=== PATIENT | female | born 1965 | race African-American/Black ===

== ENCOUNTER 2017-01-08 09:05 | Emergency (ER) | payer MEDICAID, OTHER ==
[~2017-01-08] VITALS: Ht 162.6 cm; Wt 129.3 kg
[~2017-01-08 09:05] MED LIST: AFRIN30 ML NASAL; AMOXICILLIN500 MG ORAL; ASPIR-LOW81 MG PO; COZAAR50 MG PO; CYCLOBENZAPRINE10 MG ORAL; HYDROCHLOROTHIA25 MG PO; IBUPROFEN600 MG ORAL; METOPROLOL TART50 MG PO; PRILOSEC20 MG PO; RANITIDINE HCL150 MG ORAL; SUCRALFATE1 GM PO; TRAMADOL HCL50 MG ORAL; TRAMADOL HCL50 MG PO; VERAPAMIL HCL80 MG PO
[2017-01-08 09:19] VITALS: BP 156/63
[2017-01-08] MEDS ORDERED: METFORMIN HCL500 M1 ORAL (09:24)
[2017-01-08] MEDS ORDERED: NORCO 5-325 TA1 EACH ORAL (10:52)
[2017-01-08] MEDS ORDERED: IBUPROFEN600 MG ORAL (10:52)
[2017-01-08 11:00] VITALS: BP 149/70
[2017-01-08 11:05] VITALS: BP 149/70
--- NOTE | 2017-01-08 12:31 | Diagnostic Imaging Report ---
Indication: PAIN Technique: 3 views of the right knee Comparison: None Findings:There are degenerative proliferative changes. Joint spaces are preserved. No acute fractures. No dislocations. The definite suprapatellar effusion. Impression:Degenerative changes. No acute bony trauma This agrees with the preliminary interpretation provided by the emergency room physician
--- NOTE | 2017-01-08 12:43 | Diagnostic Imaging Report ---
APPROVED REPORT CPT Code: 78774 Present Symptoms Lower Extremity Pain: Right RIGHT LEG: Venous imaging reveals a patent deep venous system. There is no evidence of thrombus within the femoral, popliteal or tibial segments. The greater saphenous vein is also within normal limits. Doppler indicates normal spontaneous flow within these segments. Incidental finding: Cystic, fluid-filled structure was noted around anterior right knee area, measuring (4.0 cm x 1.5 cm).
--- NOTE | 2017-01-08 12:58 | Emergency Room Report ---
History of Present Illness General Chief Complaint: Pain Source: Patient Present Illness HPI Patient presents emergency department today complaining of right knee pain. Patient states that she develop acute onset right knee pain progressively worse over the last couple weeks. 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 Gerardo complains of swollen right lower extremity patient denies any fever chest pain shortness of breath. No recent trauma or travel. No recent surgery. Patient not on any hormone supplements. Symptoms noted to be moderate. No history of DVT.No other modifying factors. No other associated signs and symptoms. No other complaints were noted. Allergies: Coded Allergies: No Known Allergies (Unverified , 11/10/12) Patient History Past Medical History: DM, HTN, other - Body pain Past Surgical History: none Pertinent Family History: none Social History: Denies: alcohol use, drug use, smoking Last Menstrual Period: 12/01/16 Reviewed Nursing Documentation: PMH: Agreed, PSxH: Agreed Nursing Documentation-PMH Past Medical History: No History, Except For Hx Hypertension: Yes Hx Diabetes: Yes Hx Neurological Problems: Yes - CHRONIC BODY PAIN OBESITY CHRONIC CHEST PAIN ARTHIRITS Review of Systems All Other Systems: negative except mentioned in HPI Physical Exam Vital Signs Date Time Temp Pulse Resp B/P Pulse Ox O2 Delivery O2 Flow Rate FiO2 01/08/17 09:19 97.7 80 16 156/63 97 Room Air Sp02 EP Interpretation: reviewed, normal General Appearance: normal inspection, well appearing, no apparent distress, alert Head: atraumatic Eyes: bilateral eye normal inspection ENT: normal ENT inspection, hearing grossly normal, normal voice Neck: normal inspection, full range of motion, supple, no bony tend Respiratory: normal inspection, lungs clear, normal breath sounds, no respiratory distress, no retraction, no wheezing Cardiovascular #1: regular rate, rhythm, no edema Gastrointestinal: normal inspection, normal bowel sounds, non tender, soft, no guarding, no hernia Genitourinary: no CVA tenderness Musculoskeletal: back normal, normal range of motion, swelling - right lower extremity, knee tenderness and swelling Neurologic: normal inspection, alert, responsive, speech normal Psychiatric: normal inspection, judgement/insight normal, mood/affect normal Skin: normal inspection, normal color, no rash Medical Decision Making Diagnostic Impression: Primary Impression: Arthritis ER Course Patient presents emergency department today complaining of right knee pain and swelling. Differential considerations include acute DVT, knee strain, arthritis , dependent edema just name a few. Given patient's presentation I felt was a fairly complex case patient require ultrasound rule out DVT. Ultrasound was noted to be negative for DVT. Right knee x-ray 3 view. Indication pain. Findings: Right knee x-ray does not show evidence of fracture or dislocation. Visualize soft tissue structures appear intact. No evidence of foreign body. Interpretation by ER physician: Arthritis of the right knee otherwise negative. Given patient had evidence of right knee pain. And swelling. Patient required ultrasound and x-ray both which were negative. However patient does have evidence of knee swelling. Patient require a splint. Procedure note: Terrance bandage was applied to patient's right knee under my direct supervision. Adequately i supported patient's right knee. There is no complaints his associate procedure patient was neurovascular intact after application. Patient was given prescription pain medication recommend rest and outpatient followup.Patient is advised to follow up with primary doctor in 2-3 days and return the emergency room for any worsening symptoms and as needed. Other X-Ray Diagnostic Results Other X-Ray Diagnostic Results : X-Ray Ordered: right knee x-ray EP Interpretation: Yes Findings: no fractures, no dislocation, no soft tissue swelling Number of Views: 3 Last Vital Signs Date Time Temp Pulse Resp B/P Pulse Ox O2 Delivery O2 Flow Rate FiO2 01/08/17 11:05 97.9 85 16 149/70 99 Room Air Status: improved Disposition: HOME, SELF-CARE Condition: Stable Scripts Ibuprofen* (MOTRIN*) 600 Mg Tablet 600 MG ORAL Q8H Y for For Pain, #30 TAB 0 Refills Prov: JOSSY SAMPSON M.D. 01/08/17 Hydrocodone Bit/Acetaminophen 5-325* (NORCO 5-325*) 1 Each Tablet 1 TAB ORAL Q6H Y for For Pain, #20 TAB 0 Refills Prov: JOSSY SAMPSON M.D. 01/08/17 Patient Instructions: Arthritis, [id number] JOSSY SAMPSON M.D. Jan 08, 2017 12:58
== END 2017-01-08 11:05 | disposition home or self-care (01) ==
LOC: EMR 09:29
DX: M17.11 Unilateral primary osteoarthritis, right knee (principal); E11.9 Type 2 diabetes mellitus without complications; I10 Essential (primary) hypertension
CPT/HCPCS: 93971; 99284

== ENCOUNTER 2017-04-30 09:03 | Emergency (ER) | payer MEDICAID, OTHER ==
[~2017-04-30] VITALS: Ht 162.6 cm; Wt 133.8 kg
[~2017-04-30 09:03] MED LIST changes: +METFORMIN HCL500 M1 ORAL; +NORCO 5-325 TA1 EACH ORAL
[2017-04-30] MEDS ORDERED: IBUPROFEN600 MG ORAL (09:28)
[2017-04-30] MEDS ORDERED: AMOXICILLIN500 MG ORAL (09:28)
[2017-04-30 09:59] VITALS: BP 98/64
--- NOTE | 2017-04-30 10:25 | Emergency Room Report ---
History of Present Illness General Chief Complaint: Sore Throat Source: Patient, Medical Record Present Illness HPI Patient present with complaints of sore throat ongoing since Thursday Pain is worse with swallowing Patient denies any chest pain however began having mild cough today as well Denies any vomiting or diarrhea denies any fevers or chills Denies any posterior neck pain Sore throat it is 5/10 sharp Allergies: Coded Allergies: No Known Allergies (Unverified , 11/10/12) Patient History Past Medical History: see triage record Pertinent Family History: none Last Menstrual Period: 10/30/16 Now: No : 6 Para: 2 Reviewed Nursing Documentation: PMH: Agreed, PSxH: Agreed Nursing Documentation-PMH Past Medical History: No History, Except For Hx Hypertension: Yes Hx Diabetes: Yes Hx Neurological Problems: Yes - CHRONIC BODY PAIN OBESITY CHRONIC CHEST PAIN ARTHIRITS Review of Systems All Other Systems: negative except mentioned in HPI Physical Exam Vital Signs Date Time Temp Pulse Resp B/P Pulse Ox O2 Delivery O2 Flow Rate FiO2 04/30/17 09:12 97.7 72 16 107/62 98 Room Air Sp02 EP Interpretation: reviewed, normal General Appearance: well appearing, no apparent distress Head: normocephalic, atraumatic Eyes: bilateral eye EOMI, bilateral eye PERRL ENT: hearing grossly normal, TMs + canals normal, uvula midline, pharyngeal erythema Neck: full range of motion, supple, no meningismus, no bony tend Respiratory: lungs clear, normal breath sounds, no rhonchi, no respiratory distress, no retraction, no accessory muscle use Cardiovascular #1: normal peripheral pulses, regular rate, rhythm, no edema, no gallop, no JVD, no murmur Gastrointestinal: normal bowel sounds, non tender, soft, no mass, no organomegaly, non-distended, no guarding, no hernia, no pulsatile mass, no rebound Genitourinary: no CVA tenderness Musculoskeletal: normal inspection Neurologic: oriented x3, responsive, paintless dent repair technician III-XII nml as tested, motor strength/ tone normal, sensory intact Psychiatric: mood/affect normal Skin: normal color, no rash, warm/dry, palpation normal Lymphatic: normal inspection, no adenopathy Medical Decision Making Diagnostic Impression: Primary Impression: pharyngitis ER Course Multiple differentials considered given the patient's clinical history and exam appears to be in line with likely pharyngitis Patient will have initial conservative outpatient trial Last Vital Signs Date Time Temp Pulse Resp B/P Pulse Ox O2 Delivery O2 Flow Rate FiO2 04/30/17 09:59 97.6 69 16 98/64 97 Room Air Status: unchanged Disposition: HOME, SELF-CARE Condition: Stable Scripts Ibuprofen* (MOTRIN*) 600 Mg Tablet 600 MG ORAL Q8H Y for For Pain, #20 TAB 0 Refills Prov: HUMERA HWITE D.O. 04/30/17 Amoxicillin* (AMOXIL*) 500 Mg Capsule 500 MG ORAL THREE TIMES A DAY, #21 CAP Prov: HUMERA WHITE D.O. 04/30/17 Referrals: NON PHYSICIAN (PCP) Patient Instructions: Pharyngitis, [id number] Additional Instructions: Patient is provided with the discharge instructions notified to follow up with primary doctor in the next 2-3 days otherwise return to the er with any worsening symptoms. Please note that this report is being documented using [employer] technology. This can lead to erroneous entry secondary to incorrect interpretation by the dictating instrument. HUMERA WHITE D.O. Apr 30, 2017 10:25
== END 2017-04-30 09:55 | disposition home or self-care (01) ==
LOC: EMR 09:35
DX: J02.9 Acute pharyngitis, unspecified (principal); I10 Essential (primary) hypertension; E11.9 Type 2 diabetes mellitus without complications; G89.29 Other chronic pain; E66.9 Obesity, unspecified
CPT/HCPCS: 99284

== ENCOUNTER 2017-08-04 09:13 | Emergency (ER) | payer MEDICAID ==
[~2017-08-04] VITALS: Ht 162.6 cm; Wt 135.2 kg
[2017-08-04] MEDS ORDERED: CLOTRIMAZOLE15 GM TOPIC (09:55)
[2017-08-04] MEDS ORDERED: CLINDAMYCIN HC300 MG ORAL (09:55)
[2017-08-04 10:00] VITALS: BP 109/89
[2017-08-04 10:03] VITALS: BP 109/89
--- NOTE | 2017-08-04 10:31 | Emergency Room Report ---
History of Present Illness General Chief Complaint: Skin Rash/Abscess Source: Patient Present Illness HPI 52-year-old female presents ED for evaluation. Patient notes pain to her left buttock x3 days. Denies any drainage. Pain is a 5/10, dull, nonradiating. Worse with sitting. Denies any fevers or chills. Believes it is "ringworm". Has raised edges and is itchy. Denies any sick contacts recent travel. No other aggravating relieving factors. Denies any other associated symptoms Allergies: Coded Allergies: No Known Allergies (Unverified , 11/10/12) Patient History Past Medical History: DM, HTN Past Surgical History: none Pertinent Family History: none Social History: Denies: smoking, alcohol use, drug use Now: No Immunizations: UTD Reviewed Nursing Documentation: PMH: Agreed, PSxH: Agreed Nursing Documentation-PMH Past Medical History: No History, Except For Hx Hypertension: Yes Hx Diabetes: Yes Hx Neurological Problems: Yes - CHRONIC BODY PAIN OBESITY CHRONIC CHEST PAIN ARTHIRITS Review of Systems All Other Systems: negative except mentioned in HPI Physical Exam Vital Signs Date Time Temp Pulse Resp B/P (MAP) Pulse Ox O2 Delivery O2 Flow Rate FiO2 08/04/17 09:22 97.5 98 17 109/89 94 Room Air Sp02 EP Interpretation: reviewed, normal General Appearance: no apparent distress, alert, GCS 15, non-toxic, obese Head: normocephalic Eyes: bilateral eye normal inspection, bilateral eye PERRL ENT: normal ENT inspection Neck: normal inspection Respiratory: normal inspection Cardiovascular #1: normal inspection Gastrointestinal: normal inspection Rectal: deferred Genitourinary: no CVA tenderness Musculoskeletal: normal inspection Neurologic: alert, oriented x3, responsive, motor strength/tone normal, sensory intact, speech normal Psychiatric: judgement/insight normal, memory normal, mood/affect normal, no suicidal/homicidal ideation Skin: rash - area of induration/erythema to L buttock. raised edges with central clearning Lymphatic: normal inspection Medical Decision Making Diagnostic Impression: Primary Impression: Cellulitis of buttock ER Course Hospital Course 52-year-old female presents to ED with redness, swelling to L buttock Differential diagnoses include: Cellulitis, dermatitis, insect bite, abscess Clinical course Patient placed on stretcher. After initial history, physical exam reveals a female in no acute distress. On exam there is a site for mild erythema and induration to the L buttock. There is no fluctuance. There is mild tenderness. There is also an area with raised edges with a central clearing which is consistent with ringworm. However given induration we will treat with antibiotics Diagnosis - cellulitis of buttock stable and discharged to home with prescription for topical fungal cream, Clindamycin. warm soaks TID. Instructed to followup with PMD. Instructed return to ED if symptoms recur or worsen Last Vital Signs Date Time Temp Pulse Resp B/P (MAP) Pulse Ox O2 Delivery O2 Flow Rate FiO2 08/04/17 10:03 97.5 95 17 109/89 94 Room Air Status: improved Disposition: HOME, SELF-CARE Condition: Stable Scripts Clindamycin Hcl (CLINDAMYCIN HCL) 300 Mg Capsule 300 MG ORAL THREE TIMES A DAY, #21 CAP Prov: JACOBY ALCOCER M.D. 08/04/17 Clotrimazole* (LOTRIMIN*) 15 Gm Cream..g. 1 APPLIC TOPIC TWICE A DAY, #15 GM Prov: JACOBY ALCOCER M.D. 08/04/17 Patient Instructions: Cellulitis, [id number] JACOBY ALCOCER M.D. Aug 04, 2017 10:31
== END 2017-08-04 10:10 | disposition home or self-care (01) ==
LOC: EMR 09:39
DX: L03.317 Cellulitis of buttock (principal); E11.9 Type 2 diabetes mellitus without complications; I10 Essential (primary) hypertension; M19.90 Unspecified osteoarthritis, unspecified site; E66.9 Obesity, unspecified; Z68.43 Body mass index [BMI] 50.0-59.9, adult
CPT/HCPCS: 99284

== ENCOUNTER 2017-09-15 09:21 | Emergency (ER) | payer MEDICAID ==
[~2017-09-15] VITALS: Ht 162.6 cm; Wt 131.5 kg
[~2017-09-15 09:21] MED LIST changes: +CLINDAMYCIN HC300 MG ORAL; +CLOTRIMAZOLE15 GM TOPIC
[2017-09-15] MEDS ORDERED: IBUPROFEN800 MG ORAL (09:51)
[2017-09-15 10:00] VITALS: BP 140/89
--- NOTE | 2017-09-15 11:51 | Emergency Room Report ---
History of Present Illness General Chief Complaint: Pain Source: Patient, Medical Record Present Illness HPI 52-year-old female presents ED complaining of right knee pain. States she's had this pain on and off for several months. Pain is sharp, 8/10, nonradiating , worse with walking. Patient states that she's had similar pain in the past and has come here for evaluation. Patient states she is able to walk. Denies recent trauma. No other aggravating or relieving factors. Denies any other systemic symptoms Allergies: Coded Allergies: No Known Allergies (Unverified , 11/10/12) Patient History Past Medical History: DM, HTN Past Surgical History: none Pertinent Family History: none Social History: Reports: smoking, alcohol use, drug use Last Menstrual Period: menopause Now: No Immunizations: UTD Reviewed Nursing Documentation: PMH: Agreed, PSxH: Agreed Nursing Documentation-PMH Past Medical History: No History, Except For Hx Hypertension: Yes Hx Diabetes: Yes Hx Neurological Problems: Yes - CHRONIC BODY PAIN OBESITY CHRONIC CHEST PAIN ARTHIRITS Review of Systems All Other Systems: negative except mentioned in HPI Physical Exam Vital Signs Date Time Temp Pulse Resp B/P (MAP) Pulse Ox O2 Delivery O2 Flow Rate FiO2 09/15/17 09:25 97.9 73 16 127/61 96 Room Air Sp02 EP Interpretation: reviewed, normal General Appearance: no apparent distress, alert, GCS 15, non-toxic, obese Head: normocephalic Eyes: bilateral eye normal inspection, bilateral eye PERRL ENT: normal ENT inspection Neck: normal inspection Respiratory: normal inspection Cardiovascular #1: normal inspection Gastrointestinal: normal inspection Rectal: deferred Genitourinary: no CVA tenderness Musculoskeletal: normal inspection, normal range of motion, tender - R knee Neurologic: alert, oriented x3, responsive, motor strength/tone normal, sensory intact, speech normal Psychiatric: normal inspection Skin: normal inspection Lymphatic: normal inspection Procedures Splinting Splinting : Consent: Verbal Pre-Made Type: JAYLA wrap - R knee Pre-Proc Neuro Vasc Exam: normal Post-Proc Neuro Vasc Exam: normal Patient Tolerated: Well Complications: None Medical Decision Making Diagnostic Impression: Primary Impression: Arthritis ER Course Hospital Course 52-year-old female presents to ED complaining of left elbow pain no trauma Differential diagnoses include: Fracture, dislocation, sprain, contusion, bursitis Clinical course Patient placed on stretcher. After initial history, physical exam reveals an obese female in no acute distress. There is some tenderness to the anterior aspect of the knee. There is full range of motion. No crepitus. No deformity. Patient had x-rays done in December for similar pain. Showed degenerative changes I do not believe patient requires additional imaging at this time. Discussed findings with patient. Recommend weight loss, ice and elevation, and NSAIDS. Followup with PMD with ortho referral. acewrap R knee, motrin given Diagnosis - arthritis stable and discharged to home with prescription for Motrin. Followup with PMD. Return to ED if symptoms recur or worsen Last Vital Signs Date Time Temp Pulse Resp B/P (MAP) Pulse Ox O2 Delivery O2 Flow Rate FiO2 09/15/17 10:00 97.7 65 20 140/89 96 Room Air Status: improved Disposition: HOME, SELF-CARE Condition: Stable Scripts Ibuprofen* (MOTRIN*) 800 Mg Tablet 800 MG ORAL Q8H, #30 TAB 0 Refills Prov: JACOBY ALCOCER M.D. 09/15/17 Referrals: NON PHYSICIAN (PCP) Patient Instructions: Arthritis, [id number] JACOBY ALCOCER M.D. Sep 15, 2017 11:51
[2017-11-26] MEDS ORDERED: FLONASE SENSIM9.9 ML NS (02:28)
[2017-11-26] MEDS ORDERED: PROMETH-CODEIN 65 ML PO (02:28)
== END 2017-09-15 10:05 | disposition home or self-care (01) ==
LOC: EMR 09:46
DX: M17.11 Unilateral primary osteoarthritis, right knee (principal); I10 Essential (primary) hypertension; E11.9 Type 2 diabetes mellitus without complications
CPT/HCPCS: 99283

== ENCOUNTER 2017-10-17 12:10 | Emergency (ER) | payer MEDICAID ==
[~2017-10-17] VITALS: Ht 162.6 cm; Wt 129.3 kg
[~2017-10-17 12:10] MED LIST changes: +IBUPROFEN800 MG ORAL
[2017-10-17 12:11] VITALS: BP 160/76
--- NOTE | 2017-10-17 12:26 | Emergency Room Report ---
History of Present Illness General Chief Complaint: Upper Respiratory Illness Source: Patient, Medical Record Present Illness HPI 52-year-old female presents to the emergency department complaining of wheezing and coughing times one week with moderate progression x2 days. 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 Patient denies SOB, dyspnea, orthopnea, swelling of the lower extremities, sputum production, fevers, chills. She reports history of bronchitis in the past and was rx'd Ventolin which resolved her symptoms. she denies history of asthma, COPD or smoking. Patient does report history of diabetes and intermittent high blood pressure. She states she notices her symptoms most prominently when she is exhaling, she feels as though she is using more effort to take a deep breath. denies recent travel or estrogen replacement. Denies CP, Palpitations, LOC, AMS, dizziness, Changes in Vision, Sensation, paresthesias, or a sudden severe headache. Allergies: Coded Allergies: No Known Allergies (Unverified , 11/10/12) Patient History Past Medical History: see triage record, DM Past Surgical History: none Pertinent Family History: none Last Menstrual Period: last year Immunizations: UTD Reviewed Nursing Documentation: PMH: Agreed, PSxH: Agreed Nursing Documentation-PMH Past Medical History: No History, Except For Hx Hypertension: Yes Hx Diabetes: Yes Hx Neurological Problems: Yes - CHRONIC BODY PAIN OBESITY CHRONIC CHEST PAIN ARTHIRITS Review of Systems All Other Systems: negative except mentioned in HPI Physical Exam Vital Signs Date Time Temp Pulse Resp B/P (MAP) Pulse Ox O2 Delivery O2 Flow Rate FiO2 10/17/17 12:11 97.9 86 18 160/76 95 Room Air Sp02 EP Interpretation: reviewed, normal General Appearance: no apparent distress, alert, GCS 15, non-toxic Head: normocephalic, atraumatic Eyes: bilateral eye normal inspection, bilateral eye PERRL ENT: hearing grossly normal, normal pharynx, normal voice, uvula midline Neck: full range of motion Respiratory: chest non-tender, lungs clear, normal breath sounds, no rhonchi, no respiratory distress, no accessory muscle use, speaking full sentences, wheezing - some scant wheezes in the upper lung richadr bilaterally, Cardiovascular #1: regular rate, rhythm, no edema, normal capillary refill Gastrointestinal: non tender, soft Rectal: deferred Musculoskeletal: back normal, gait/station normal, normal range of motion, non- tender Neurologic: alert, oriented x3, responsive, motor strength/tone normal, sensory intact, normal gait, speech normal Skin: normal color, no rash, warm/dry, well hydrated Medical Decision Making PA Attestation Dr. Lee is my supervising Physician whom patient management has been discussed with. Diagnostic Impression: Primary Impression: Upper respiratory symptom ER Course 52-year-old female presents to the emergency department complaining of wheezing and coughing times one week with moderate progression x2 days. 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 Patient denies SOB, dyspnea, orthopnea, swelling of the lower extremities, sputum production, fevers, chills. She reports history of bronchitis in the past and was rx'd Ventolin which resolved her symptoms. she denies history of asthma, COPD or smoking. Patient does report history of diabetes and intermittent high blood pressure. She states she notices her symptoms most prominently when she is exhaling, she feels as though she is using more effort to take a deep breath. denies recent travel or estrogen replacement. Denies CP, Palpitations, LOC, AMS, dizziness, Changes in Vision, Sensation, paresthesias, or a sudden severe headache. Ddx considered but are not limited to asthma exacerbation, CHF, URI, pneumonia, PE, VT, Bronchospasm, strep pharyngitis, meningitis. Vital signs: Pt. is afebrile, VS are WNL H&PE are most consistent with cold induced induced acute - mild-bronchospasm. pt. is NAD, non-toxic in appearance, not using accessory muscles or in respiratory distress. lungs are auscultated to have some scant wheezes in the upper lung richard bilaterally, no Ronchi or rales, no edema. I do not suspect acute cardiac cause of this pt. symptoms given progressive onset, Clinical appearance, and hx of having bronchitis being rx'd Ventolin. ORDERS: none required at this time, the diagnosis is clinical ED INTERVENTIONS: -Albuterol nebulized treatment. - re-examination post nebulized treatment lungs are CTA bilaterally. -Pt. reports resolution of her symptoms. d/w pt. conservative treatment, and to follow up with a primary care provider. pt given a list of primary care clinics for follow up. d/w pt. to return to the ED with worsening or new symptoms. DISCHARGE: At this time pt. is stable for d/c to home. Will provide printed patient care instructions, and any necessary prescriptions. Care plan and follow up instructions have been discussed with the patient prior to discharge. Last Vital Signs Date Time Temp Pulse Resp B/P (MAP) Pulse Ox O2 Delivery O2 Flow Rate FiO2 10/17/17 12:11 97.9 86 18 160/76 95 Room Air Status: improved Disposition: HOME, SELF-CARE Condition: Stable Scripts Inhaler, Assist Devices (AEROCHAMBER) 1 Each Spacer EACH MC, #1 Prov: Elizabeth Peterson 10/17/17 Albuterol Sulfate* (ALBUTEROL SULFATE MDI*) 8.5 Gm Hfa.aer.ad 2 PUFF INH Q3H, #1 INH 0 Refills Prov: Elizabeth Peterson 10/17/17 Patient Instructions: Bronchospasm, Adult, [id number] Additional Instructions: Take medications as directed. Follow up with a Primary Care Provider in 3-5 days, even if your symptoms have resolved. --Please review list of primary care clinics, if you do not already have a primary care provider Return sooner to ED if new symptoms occur, or current symptoms become worse. - Please note that this Emergency Department Report was dictated using [employer] technology software, occasionally this can lead to erroneous entry secondary to interpretation by the dictation equipment. Elizabeth Peterson Oct 17, 2017 12:26
[2017-10-17] MEDS ORDERED: Albuterol ud Inhalation HHN ONE (13:00)
[2017-10-17] MEDS ORDERED: ALBUTEROL SULF8.5 GM INH (13:20)
[2017-10-17] MEDS ORDERED: AEROCHAMBER1 EACH MC (13:20)
[2017-10-17 13:39] VITALS: BP 160/76
[2017-11-26] MEDS ORDERED: FLONASE SENSIM9.9 ML NS (02:28)
[2017-11-26] MEDS ORDERED: PROMETH-CODEIN 65 ML PO (02:28)
== END 2017-10-17 13:54 | disposition home or self-care (01) ==
LOC: EMR 12:37
DX: J06.9 Acute upper respiratory infection, unspecified (principal); I10 Essential (primary) hypertension; E11.9 Type 2 diabetes mellitus without complications; G89.29 Other chronic pain
CPT/HCPCS: 94640; 94664; 99284

== ENCOUNTER → 2017-11-26 | Emergency (ER) | payer MEDICAID ==
[~2017-11-26] VITALS: Ht 162.6 cm; Wt 131.5 kg
[~2017-11-26] MED LIST changes: +AEROCHAMBER1 EACH MC; +ALBUTEROL SULF8.5 GM INH; +ERYTHROMYCIN3.5 GM BOTH EYES; +FLONASE SENSIM9.9 ML NS; +PROMETH-CODEIN 65 ML PO
[2017-11-26 02:05] VITALS: BP 164/74
--- NOTE | 2017-11-26 02:28 | Emergency Room Report ---
History of Present Illness General Chief Complaint: Dyspnea/Respdistress Source: Patient Present Illness [facility] This is a 52-year-old female who has a history of high blood pressure diabetes. She presents with chief complaint shortness of breath and sinus congestion. Onset since [place]. No fever or chills. No nausea vomiting. Has coughing. Hard time breathing. She been using Afrin for last several days. Allergies: Coded Allergies: No Known Allergies (Unverified , 11/10/12) Patient History Past Medical History: see triage record, old chart reviewed, DM, HTN Past Surgical History: other Pertinent Family History: none Social History: Denies: smoking Last Menstrual Period: none Now: No Immunizations: other Reviewed Nursing Documentation: PMH: Agreed, PSxH: Agreed Nursing Documentation-PMH Hx Hypertension: Yes Hx Diabetes: Yes Hx Neurological Problems: Yes - CHRONIC BODY PAIN OBESITY CHRONIC CHEST PAIN ARTHIRITS Review of Systems Eye: Denies: eye pain, blurred vision ENT: Reports: nose congestion, Denies: ear pain, throat swelling Respiratory: Reports: cough, shortness of breath Cardiovascular: Denies: chest pain, palpitations Gastrointestinal: Denies: abdominal pain, diarrhea, nausea, vomiting Musculoskeletal: Denies: back pain, joint pain Skin: Denies: rash Neurological: Denies: headache, numbness Endocrine: Denies: increased thirst, increased urine Hematologic/Lymphatic: Denies: easy bruising All Other Systems: negative except mentioned in HPI Physical Exam Vital Signs Date Time Temp Pulse Resp B/P (MAP) Pulse Ox O2 Delivery O2 Flow Rate FiO2 11/26/17 01:50 99.0 87 22 164/74 93 Room Air 11/26/17 02:05 93 vitals with high blood pressure Sp02 EP Interpretation: reviewed, normal General Appearance: well appearing, no apparent distress, alert Head: normocephalic, atraumatic Eyes: bilateral eye PERRL, bilateral eye EOMI ENT: hearing grossly normal, normal pharynx, other - Turbinates are enlarged and touching. Neck: full range of motion, supple, no meningismus Respiratory: chest non-tender, lungs clear, normal breath sounds Cardiovascular #1: regular rate, rhythm, no murmur Gastrointestinal: normal bowel sounds, non tender, no mass, no organomegaly, no bruit, non-distended Musculoskeletal: back normal, gait/station normal, normal range of motion Psychiatric: mood/affect normal Skin: warm/dry Medical Decision Making Diagnostic Impression: Primary Impression: Upper respiratory infection, viral ER Course She with a viral upper respiratory infection. No evidence of pneumonia, PE ACS to name a few. We'll discharge home. Last Vital Signs Date Time Temp Pulse Resp B/P (MAP) Pulse Ox O2 Delivery O2 Flow Rate FiO2 11/26/17 02:05 99.0 87 22 164/74 93 Room Air 11/26/17 02:05 93 Status: unchanged Disposition: HOME, SELF-CARE Condition: Stable Scripts Promethazine HCl/Codeine (Prometh-Codein 6.25-10 mg/5 ml) 5 Ml Syrup 5 ML PO Q6HR, #240 ML Prov: MELISSA BERG M.D. 11/26/17 Fluticasone Furoate (FLONASE SENSIMIST) 9.9 Ml [place].susp 1 SPRAYS NS BID, #1 UNIT Prov: MELISSA BERG M.D. 11/26/17 Additional Instructions: Stop using Afrin. Followup your [facility] in 2-3 days. Return if symptom worsen. MELISSA BERG M.D. Nov 26, 2017 02:28
[2017-11-26 02:35] VITALS: BP 164/74
== END | disposition home or self-care (01) ==
LOC: EMR 02:24
DX: J06.9 Acute upper respiratory infection, unspecified (principal); B34.9 Viral infection, unspecified; E11.9 Type 2 diabetes mellitus without complications; I10 Essential (primary) hypertension
CPT/HCPCS: 99283

== ENCOUNTER 2017-12-31 08:22 | Emergency (ER) | payer MEDICAID ==
[~2017-12-31] VITALS: Ht 162.6 cm; Wt 133.8 kg
[~2017-12-31 08:22] MED LIST changes: -ERYTHROMYCIN3.5 GM BOTH EYES
[2017-12-31 08:40] VITALS: BP 121/65
[2017-12-31] MEDS ORDERED: ERYTHROMYCIN3.5 GM BOTH EYES (08:41)
--- NOTE | 2017-12-31 09:22 | Emergency Room Report ---
History of Present Illness General Chief Complaint: Eye Problems Source: Patient Present Illness HPI [id number] with 1 week bilateral eye crusting, discharge (yellow/white) associated with itch, discharge Using OTC antihistamine drops with improvement to itch Still with eye discharge Doesnt use contacts Denies eye pain, pain with EOM, fever/chills, swelling around eyelids, headache Allergies: Coded Allergies: No Known Allergies (Unverified , 11/10/12) Patient History Past Medical History: none Past Surgical History: none Social History: Denies: smoking, alcohol use, drug use Now: No Reviewed Nursing Documentation: PMH: Agreed, PSxH: Agreed Nursing Documentation-PMH Hx Hypertension: Yes Hx Diabetes: Yes Hx Neurological Problems: Yes - CHRONIC BODY PAIN OBESITY CHRONIC CHEST PAIN ARTHIRITS Review of Systems All Other Systems: negative except mentioned in HPI Physical Exam Vital Signs Date Time Temp Pulse Resp B/P (MAP) Pulse Ox O2 Delivery O2 Flow Rate FiO2 12/31/17 08:30 98.1 78 18 121/65 95 Room Air Sp02 EP Interpretation: reviewed, normal General Appearance: normal inspection, well appearing, no apparent distress, alert, GCS 15, non-toxic Head: normocephalic, atraumatic Eyes: bilateral eye PERRL, bilateral eye EOMI, bilateral eye other - bilateral mild injected conjunctiva, white discharge/crust from medial aspect ENT: normal ENT inspection, hearing grossly normal, normal pharynx, no angioedema, normal voice, TMs + canals normal, uvula midline, moist mucus membranes Neck: normal inspection, full range of motion, supple, thyroid normal, no meningismus, no bony tend Respiratory: normal inspection, lungs clear, normal breath sounds, no rhonchi, no respiratory distress, no retraction, no accessory muscle use, no wheezing, speaking full sentences Cardiovascular #1: regular rate, rhythm, no edema, no JVD, normal capillary refill Gastrointestinal: normal inspection, normal bowel sounds, non tender, soft, no mass, no peritonitis, non-distended, no guarding, no hernia, no pulsatile mass Genitourinary: no CVA tenderness Musculoskeletal: normal inspection, back normal, normal range of motion, no calf tenderness, pelvis stable, Gricelda's Sign negative Neurologic: normal inspection, alert, oriented x3, responsive, relief pharmacist III-XII nml as tested, motor strength/tone normal, cerebellar normal, normal gait, speech normal Psychiatric: normal inspection, judgement/insight normal, mood/affect normal, no suicidal/homicidal ideation, no delusions Skin: normal inspection, normal color, no rash Lymphatic: normal inspection, no adenopathy Medical Decision Making Diagnostic Impression: Primary Impression: Bacterial conjunctivitis of both eyes ER Course Possible bilateral bacterial conjunctivitis VSS, Afebrile No improvement with OTC antihistamine drops Warrants trial of optham antibiotic ER course: Patient has remained stable during ED stay. Disposition: Patient is to be discharged to home. Prescriptions given are optham erythromycin Strict return precautions discussed with patient such as fever, chills, worsening/severe pain, nausea, vomiting, which may indicate severe illness. Patient verbalizes understanding and agrees with plan. Please note that this Emergency Department Report was dictated using [employer] Circle[employer] admissions officer technology software, occasionally this can lead to erroneous entry secondary to interpretation by the dictation equipment Last Vital Signs Date Time Temp Pulse Resp B/P (MAP) Pulse Ox O2 Delivery O2 Flow Rate FiO2 12/31/17 08:48 98.0 18 121/65 95 Room Air 12/31/17 08:30 78 Status: improved Disposition: HOME, SELF-CARE Condition: Improved Scripts Erythromycin Base (ERYTHROMYCIN*) 3.5 Gm Oint...g. 1 APPLIC BOTH EYES TID for 7 Days, #3.5 GM 0 Refills Prov: YURY FAM M.D. 12/31/17 Referrals: NON PHYSICIAN (PCP) Patient Instructions: Bacterial Conjunctivitis YURY FAM M.D. Dec 31, 2017 09:22
== END 2017-12-31 09:00 | disposition home or self-care (01) ==
LOC: EMR 08:53
DX: H10.9 Unspecified conjunctivitis (principal); B96.89 Other specified bacterial agents as the cause of diseases classified elsewhere; I10 Essential (primary) hypertension; E11.9 Type 2 diabetes mellitus without complications
CPT/HCPCS: 99283

== ENCOUNTER 2019-01-05 16:11 | Emergency (ER) | payer MEDICAID ==
[~2019-01-05] VITALS: Ht 162.6 cm; Wt 128.8 kg
[~2019-01-05 16:11] MED LIST changes: +ERYTHROMYCIN3.5 GM BOTH EYES
--- NOTE | 2019-01-05 16:55 | NUR ---
ED Nurse Note: Patient walked into ED c/o of a laceration in her right hand that occured while she was washing dishes, patients wound is abot half an inch across and is still open, at time of arrival, patient's wound was cleaned up.
[2019-01-05 17:53] VITALS: BP 127/82
--- NOTE | 2019-01-05 18:00 | Emergency Room Report ---
History of Present Illness General Chief Complaint: Skin Rash/Abscess Source: Patient, Medical Record Present Illness HPI 53-year-old female presents to the emergency department complaining of having itchy swollen eyes with persistent sneezing 2 days. Patient also reports she has a rational localized area of the left buttock that is also itchy. Patient denies increase in lacrimation, foreign body or scratching sensation.Denies: Pain, Discharge, Redness, Loss of vision, Floaters, Flashing lights, Diplopia/ blurry vision, Increased tearing. She denies cough. Pt. denies fevers, chills or swollen tender lymph nodes. Denies lesions/rashes elsewhere on the body. Denies new medications or body washes or creams. Denies swelling of the lips, tongue , throat or airway. Denies wheezing, or shortness of breath. Denies recent travel, recent illness or ill contacts. denies blisters, oral lesions, or sloughing of the skin. She denies pain at this time. Allergies: Coded Allergies: No Known Allergies (Unverified , 11/10/12) Patient History Past Medical History: see triage record Past Surgical History: none Pertinent Family History: none Reviewed Nursing Documentation: PMH: Agreed; PSxH: Agreed Nursing Documentation-PMH Hx Hypertension: Yes Hx Diabetes: Yes Hx Neurological Problems: Yes - CHRONIC BODY PAIN OBESITY CHRONIC CHEST PAIN ARTHIRITS Review of Systems All Other Systems: negative except mentioned in HPI Physical Exam Vital Signs Date Time Temp Pulse Resp B/P (MAP) Pulse Ox O2 Delivery O2 Flow Rate FiO2 01/05/19 16:40 97.9 70 16 130/60 96 Room Air Sp02 EP Interpretation: reviewed, normal General Appearance: no apparent distress, alert, GCS 15, non-toxic Head: normocephalic, atraumatic Eyes: bilateral eye normal inspection, bilateral eye PERRL, bilateral eye visual acuity - Pt. wears glasses, bilateral eye other - mild upper lid edema bilaterally, no d/c or erythema noted. ENT: hearing grossly normal, normal pharynx, normal voice, uvula midline, nasal congestion - and clear rhinorrhea, other - no stridor Neck: full range of motion Respiratory: chest non-tender, lungs clear, normal breath sounds, no wheezing, speaking full sentences Cardiovascular #1: regular rate, rhythm Musculoskeletal: back normal, gait/station normal, normal range of motion, non- tender Neurologic: alert, oriented x3, responsive, motor strength/tone normal, sensory intact, speech normal, grossly normal Psychiatric: judgement/insight normal Skin: normal color, warm/dry, well hydrated, rash - two plaques noted on the left buttock, no induration, no warmth, erythema and mild hyperpigmentation, no blisters or vessicles. Medical Decision Making PA Attestation Dr. Littlejohn is my supervising Physician whom patient management has been discussed with. Diagnostic Impression: Primary Impression: Allergic conjunctivitis and rhinitis Qualified Codes: H10.13 - Acute atopic conjunctivitis, bilateral; J30.9 - Allergic rhinitis, unspecified Additional Impression: Rash and nonspecific skin eruption ER Course 53-year-old female presents to the emergency department complaining of having itchy swollen eyes with persistent sneezing 2 days. Patient also reports she has a rational localized area of the left buttock that is also itchy. Patient denies increase in lacrimation, foreign body or scratching sensation.Denies: Pain, Discharge, Redness, Loss of vision, Floaters, Flashing lights, Diplopia/ blurry vision, Increased tearing. She denies cough. Pt. denies fevers, chills or swollen tender lymph nodes. Denies lesions/rashes elsewhere on the body. Denies new medications or body washes or creams. Denies swelling of the lips, tongue , throat or airway. Denies wheezing, or shortness of breath. Denies recent travel, recent illness or ill contacts. denies blisters, oral lesions, or sloughing of the skin. She denies pain at this time. Ddx considered but are not limited to cellulitis, scabies, shingles, varicella, dermatitis, urticaria, eczema, tinea, viral exanthem, SJS Vital signs: are WNL, pt. is afebrile H&PE are most consistent with Allergic conjunctivitis with rhinitis and dermatitis of the left buttock. ORDERS: none required at this time, the diagnosis is clinical ED INTERVENTIONS: None required at this time. DISCHARGE: At this time pt. is stable for d/c to home. Will provide printed patient care instructions, and any necessary prescriptions. Care plan and follow up instructions have been discussed with the patient prior to discharge. Last Vital Signs Date Time Temp Pulse Resp B/P (MAP) Pulse Ox O2 Delivery O2 Flow Rate FiO2 01/05/19 16:40 97.9 70 16 130/60 96 Room Air Disposition: HOME, SELF-CARE Condition: Stable Scripts Hydrocortisone 2% Cream (ANTI-ITCH 2% CREAM) Y Cr 1 APPLIC TP Q6HR, #28.3 GM Prov: Elizabeth Peterson 01/05/19 Cetirizine Hcl* (ZYRTEC*) 10 Mg Tablet 10 MG ORAL DAILY, #30 TAB 0 Refills Prov: Elizabeth Peterson 01/05/19 Clotrimazole* (LOTRIMIN*) 15 Gm Cream..g. 1 APPLIC TOPIC TWICE A DAY, #15 GM Prov: Elizabeth Peterson 01/05/19 Olopatadine Hcl (PATADAY) 2.5 Ml Drops 1 DRP OP DAILY, #2.5 ML Prov: Elizabeth Peterson 01/05/19 Referrals: NON PHYSICIAN (PCP) Patient Instructions: Allergies, [id number], Rash Additional Instructions: Take medications as directed. Follow up with a Primary Care Provider in 3-5 days, even if your symptoms have resolved. --Please review list of primary care clinics, if you do not already have a primary care provider Return sooner to ED if new symptoms occur, or current symptoms become worse. - Please note that this Emergency Department Report was dictated using Playfireclerical associate technology software, occasionally this can lead to erroneous entry secondary to interpretation by the dictation equipment. Elizabeth Peterson Jan 05, 2019 18:00
[2019-01-05] MEDS ORDERED: PATADAY2.5 ML OP (18:03)
[2019-01-05] MEDS ORDERED: ANTI-ITCH28 G1 TP (18:03)
[2019-01-05] MEDS ORDERED: CLOTRIMAZOLE15 GM TOPIC (18:03)
[2019-01-05] MEDS ORDERED: ZYRTEC10 MG ORAL (18:03)
[2019-01-05 18:15] VITALS: BP 122/80
--- NOTE | 2019-01-05 18:18 | NUR ---
ED Nurse Note: Pt. AAOx4. left with steady and all belongings. Pt. education done regarding d/c papers and prescriptions. Pt. verbalized the uderstanding of the teaching. VSS. ID armband removed.
== END 2019-01-05 18:20 | disposition home or self-care (01) ==
LOC: EMR 17:20
DX: H10.13 Acute atopic conjunctivitis, bilateral (principal); R21 Rash and other nonspecific skin eruption; J30.9 Allergic rhinitis, unspecified; E11.9 Type 2 diabetes mellitus without complications; I10 Essential (primary) hypertension; G89.29 Other chronic pain
CPT/HCPCS: 99282

== ENCOUNTER 2019-01-20 15:16 | Emergency (ER) | payer MEDICAID ==
[~2019-01-20] VITALS: Ht 162.6 cm; Wt 135.6 kg
[~2019-01-20 15:16] MED LIST changes: +ANTI-ITCH28 G1 TP; +PATADAY2.5 ML OP; +ZYRTEC10 MG ORAL
--- NOTE | 2019-01-20 15:30 | NUR ---
ED Nurse Note: Patient walked into ED from home c/o SOB for 1 week, patient denies any worsening of SOB with activities. reports no CP, n/v, chills or fever. a/o x4, ambulatory
[2019-01-20 15:39] VITALS: BP 170/69
[2019-01-20] MEDS ORDERED: Albuterol ud Inhalation HHN ONE (16:00)
--- NOTE | 2019-01-20 16:59 | Emergency Room Report ---
History of Present Illness General Chief Complaint: Dyspnea/Respdistress Source: Patient Present Illness Allergies: Coded Allergies: No Known Allergies (Unverified , 11/10/12) Nursing Documentation-H Past Medical History: No History, Except For Hx Hypertension: Yes Hx Diabetes: Yes Hx Neurological Problems: Yes - CHRONIC BODY PAIN OBESITY CHRONIC CHEST PAIN ARTHIRITS Physical Exam Vital Signs Date Time Temp Pulse Resp B/P (MAP) Pulse Ox O2 Delivery O2 Flow Rate FiO2 01/20/19 15:25 97.7 83 16 170/69 95 Room Air 01/20/19 16:12 21 Medical Decision Making PA Attestation Dr. Marrero is my supervising Physician whom patient management has been discussed with. Diagnostic Impression: Primary Impression: Bronchitis ER Course Pt. presents to the ED c/o dry cough and chest congestion x [ ] day(s). pt. requests steriod burst. Ddx considered but are not limited to URI, pneumonia, PE, strep pharyngitis, meningitis. Vital signs: Pt.is afebrile VS are WNL H&PE are most consistent with bronchitis ORDERS: none required at this time, the diagnosis is clinical ED INTERVENTIONS: nebulized albuterol treatment DISCHARGE: At this time pt. is stable for d/c to home. Will provide printed patient care instructions, and any necessary prescriptions. Care plan and follow up instructions have been discussed with the patient prior to discharge. Last Vital Signs Date Time Temp Pulse Resp B/P (MAP) Pulse Ox O2 Delivery O2 Flow Rate FiO2 01/20/19 16:17 87 18 100 Room Air 21 01/20/19 15:39 97.7 170/69 Disposition: HOME, SELF-CARE Condition: Stable Patient Instructions: Acute Bronchitis, [id number], Shortness of Breath, Easy -to-Read Additional Instructions: Take medications as directed. Follow up with a Primary Care Provider in 3-5 days, even if your symptoms have resolved. --Please review list of primary care clinics, if you do not already have a primary care provider Return sooner to ED if new symptoms occur, or current symptoms become worse. - Please note that this Emergency Department Report was dictated using [employer] Mediapoolroom table attendant technology software, occasionally this can lead to erroneous entry secondary to interpretation by the dictation equipment. Elizabeth Peterson Jan 20, 2019 16:59
[2019-01-20] MEDS ORDERED: ALBUTEROL SULF8.5 GM INH (17:15)
[2019-01-20] MEDS ORDERED: PROMETHAZINE-C118 M1 ORAL (17:15)
[2019-01-20] MEDS ORDERED: PREDNISONE20 MG ORAL (17:15)
[2019-01-20 17:30] VITALS: BP 159/72
--- NOTE | 2019-01-20 17:30 | NUR ---
ER DISCHARGE NOTE: Patient is cleared to be discharged per ERMD, pt is aox4, on room air, with stable vital signs. pt was given dc instructions, pt was able to verbalize understanding, pt id band removed pt is able to ambulate with steady gait. pt took all belongings.
--- NOTE | 2019-01-20 17:42 | Diagnostic Imaging Report ---
Indication: Chest pain Technique: One view of the chest Comparison: 11/10/2012 Findings: Exam is limited by body habitus. No definite acute infiltrates, effusions, congestion. The heart is borderline enlarged. Impression: Borderline cardiomegaly. No definite acute process
== END 2019-01-20 17:30 | disposition home or self-care (01) ==
LOC: EMR 16:00
DX: J40 Bronchitis, not specified as acute or chronic (principal); R09.89 Other specified symptoms and signs involving the circulatory and respiratory systems; I10 Essential (primary) hypertension; E11.9 Type 2 diabetes mellitus without complications; G89.29 Other chronic pain; E66.9 Obesity, unspecified; Z68.43 Body mass index [BMI] 50.0-59.9, adult
CPT/HCPCS: 71045; 94640; 99284

== ENCOUNTER 2019-03-12 22:25 | Emergency (ER) | payer MEDICAID ==
[~2019-03-12] VITALS: Ht 162.6 cm; Wt 133.8 kg
[~2019-03-12 22:25] MED LIST changes: +PREDNISONE20 MG ORAL; +PROMETHAZINE-C118 M1 ORAL
[2019-03-12 22:40] VITALS: BP 126/82
--- NOTE | 2019-03-12 22:40 | NUR ---
ED Nurse Note: Pt arrived ED from home, c/o left foot swollen for one week. Pt is A/O X 4. Vital signs stable at this time, wainting for orders.
[2019-03-12] MEDS ORDERED: TRUFORM COMPRE1 EACH MC (23:12)
[2019-03-12 23:20] VITALS: BP 124/81
--- NOTE | 2019-03-12 23:20 | NUR ---
ER DISCHARGE NOTE: Patient is cleared to be discharged per Dr. Euceda. Pt is aox4 on room air with stable vital signs. Pt was given dc and prescription instructions, pt was able to verbalize understanding, pt id band removed. pt is able to ambulate with steady gait. pt took all belongings.
[2019-03-12] MEDS ORDERED: SPIRONOLACTONE25 MG ORAL (23:55)
--- NOTE | 2019-03-13 00:41 | Emergency Room Report ---
History of Present Illness General Chief Complaint: Edema Source: Patient Present Illness HPI 53-year-old female presents ED for evaluation. Patient complaining of bilateral feet swelling. Has been there for one week. Denies pain. Denies shortness of breath. States that she was previously taking spironolactone and was stopped by her PMD recently. States swelling started shortly after she stopped the medication. No other aggravating relieving factors. Denies any other associated symptoms Allergies: Uncoded Allergies: DUST,POLLEN (Allergy, Unknown, 03/12/19) Patient History Past Medical History: DM, HTN Past Surgical History: none Pertinent Family History: none Social History: Denies: smoking, alcohol use, drug use Last Menstrual Period: Nov 2017 Now: No Immunizations: UTD Reviewed Nursing Documentation: PMH: Agreed; PSxH: Agreed Nursing Documentation-PMH Hx Hypertension: Yes Hx Diabetes: Yes Hx Neurological Problems: Yes - CHRONIC BODY PAIN OBESITY CHRONIC CHEST PAIN ARTHIRITS Review of Systems All Other Systems: negative except mentioned in HPI Physical Exam Vital Signs Date Time Temp Pulse Resp B/P (MAP) Pulse Ox O2 Delivery O2 Flow Rate FiO2 03/12/19 22:34 97.9 99 20 127/85 99 Room Air Sp02 EP Interpretation: reviewed, normal General Appearance: no apparent distress, alert, GCS 15, non-toxic, obese Head: normocephalic ENT: normal ENT inspection Neck: normal inspection Respiratory: chest non-tender, lungs clear, normal breath sounds, speaking full sentences Cardiovascular #1: regular rate, rhythm, no edema Gastrointestinal: normal inspection Rectal: deferred Genitourinary: no CVA tenderness Musculoskeletal: back normal, gait/station normal, normal range of motion, swelling - 1+ pitting edema b/l LEs Neurologic: alert, oriented x3, responsive, motor strength/tone normal, sensory intact, speech normal Psychiatric: normal inspection Skin: normal inspection Lymphatic: normal inspection Medical Decision Making Diagnostic Impression: Primary Impression: Peripheral edema ER Course Hospital Course 53-year-old female presents to ED with swelling to bilateral LEs Differential diagnoses include: Cellulitis, dermatitis, insect bite, abscess Clinical course Patient placed on stretcher. After initial history, physical exam reveals an obese female in no acute distress. On exam there is 1+ pitting edema to bilateral lower extremities. No calf tenderness. Lungs clear. Vital stable. Discussed findings with patient. Swelling likely because patient stopped taking the spironolactone. Patient states she was only taking the spironolactone for leg swelling. No history of congestive heart failure. I have no suspicion for DVT at this time I discussed options with the patient. I explained that she could follow-up with her PMD to discuss resuming the medication. Patient asked that we can start her on the medication tonight. I agreed to provide a 10 day supply of spironolactone but explained that she needs to follow-up with her PMD if she needs to continue the medication. patient agreed Safe for discharge with close outpatient follow-up. States she has a PMD. We' ll also provide prescription for compression stockings Diagnosis - peripheral edema stable and discharged to home with prescription for spironolactone, compression stockings. Instructed to followup with PMD. Instructed return to ED if symptoms recur or worsen Last Vital Signs Date Time Temp Pulse Resp B/P (MAP) Pulse Ox O2 Delivery O2 Flow Rate FiO2 03/12/19 23:20 97.9 92 20 124/81 99 Room Air Status: improved Disposition: HOME, SELF-CARE Condition: Stable Scripts Spironolactone* (ALDACTONE*) 25 Mg Tablet 25 MG ORAL DAILY for 10 Days, TAB Prov: Antony Euceda MD 03/12/19 Comp.stocking,Knee,Regular,Lrg (TRUFORM COMPRESSION STOCKING) 1 Each Each EACH , #2 Prov: Antony Euceda MD 03/12/19 Referrals: NON PHYSICIAN (PCP) Patient Instructions: Peripheral Edema Antony Euceda MD Mar 13, 2019 00:41
== END 2019-03-12 23:20 | disposition home or self-care (01) ==
LOC: EMR 22:50
DX: R60.9 Edema, unspecified (principal); E11.9 Type 2 diabetes mellitus without complications; I10 Essential (primary) hypertension; Z91.048 Other nonmedicinal substance allergy status; M19.90 Unspecified osteoarthritis, unspecified site; E66.9 Obesity, unspecified; Z68.43 Body mass index [BMI] 50.0-59.9, adult
CPT/HCPCS: 99282

== ENCOUNTER 2019-07-09 19:55 | Emergency (ER) | payer MEDICAID ==
[~2019-07-09] VITALS: Ht 165.1 cm; Wt 131.5 kg
[~2019-07-09 19:55] MED LIST changes: +SPIRONOLACTONE25 MG ORAL; +TRUFORM COMPRE1 EACH MC
[2019-07-09 20:25] VITALS: BP 126/90
[2019-07-09] MEDS ORDERED: ROBAXIN-750750 MG PO (20:49)
[2019-07-09] MEDS ORDERED: NAPROXEN250 MG ORAL (20:49)
[2019-07-09] MEDS ORDERED: NORCO 5-325 TA1 EACH ORAL (20:49)
--- NOTE | 2019-07-09 20:49 | Emergency Room Report ---
History of Present Illness General Chief Complaint: Pain Source: Patient, Medical Record Present Illness HPI 54-year-old female with chronic right knee pain, 7 days of acute on chronic pain , she states she has a torn ligament, she endorses achy pain worsened with movement alleviated with rest, severity is moderate, patient presents for evaluation, she is wondering if she can get a injection into her joint. No fevers chills chest pain shortness of breath Allergies: Uncoded Allergies: DUST,POLLEN (Allergy, Unknown, 03/12/19) Patient History Past Medical History: see triage record Last Menstrual Period: 2017 Now: No : 6 Para: 2 Reviewed Nursing Documentation: PMH: Agreed; PSxH: Agreed Nursing Documentation-PMH Hx Hypertension: Yes Hx Asthma: Yes Hx Diabetes: Yes Hx Neurological Problems: Yes - CHRONIC BODY PAIN OBESITY CHRONIC CHEST PAIN ARTHIRITS Review of Systems All Other Systems: negative except mentioned in HPI Physical Exam Vital Signs Date Time Temp Pulse Resp B/P (MAP) Pulse Ox O2 Delivery O2 Flow Rate FiO2 07/09/19 20:21 97.9 72 18 126/90 (102) 92 Room Air Sp02 EP Interpretation: reviewed, normal General Appearance: well appearing, no apparent distress, alert Head: normocephalic, atraumatic Eyes: bilateral eye PERRL, bilateral eye EOMI ENT: uvula midline, moist mucus membranes Neck: supple, thyroid normal, supple/symm/no masses Respiratory: lungs clear, no respiratory distress, no retraction, no accessory muscle use Cardiovascular #1: normal peripheral pulses, regular rate, rhythm, no edema, no gallop, no murmur Gastrointestinal: non tender, soft, no guarding, no rebound Musculoskeletal: normal inspection, other - Right lower extremity: 2+ PT DP, fires EHL, valgus varus stress negative anterior posterior drawer negative, no effusion noted, 5 out of 5 strength flexion extension of the right knee, sensation grossly intact Neurologic: alert, oriented x3 Psychiatric: mood/affect normal Skin: no rash, warm/dry Medical Decision Making Diagnostic Impression: Primary Impression: Right knee pain Qualified Codes: M25.561 - Pain in right knee ER Course Patient with chronic right knee pain, put the osteoarthritis, low suspicion for septic joint, range of motion intact. Will provide patient with Decadron by mouth, will provide patient with a short- term prescription of pain control, patient counseled to follow-up with PCP and orthopedics, return precautions discussed Last Vital Signs Date Time Temp Pulse Resp B/P (MAP) Pulse Ox O2 Delivery O2 Flow Rate FiO2 07/09/19 20:21 97.9 72 18 126/90 (102) 92 Room Air Disposition: HOME, SELF-CARE Condition: Stable Scripts Methocarbamol* (ROBAXIN-750*) 750 Mg Tablet 750 MG PO QID, #28 TAB 0 Refills Prov: Larry Trinidad MD 07/09/19 Hydrocodone Bit/Acetaminophen 5-325* (NORCO 5-325*) 1 Each Tablet 1 TAB ORAL Q6H PRN for For Pain, #12 TAB 0 Refills Prov: Larry Trinidad MD 07/09/19 Naproxen* (NAPROSYN*) 250 Mg Tablet 250 MG ORAL BID PRN for For Pain, #20 TAB 0 Refills Prov: Larry Trinidad MD 07/09/19 Referrals: [facility] Oseas Dorsey. [facility] Patient Instructions: KNEE PAIN, Uncertain Cause, Knee Pain, [id number] Additional Instructions: The patient was provided with discharge instructions, notified to follow-up with a primary care doctor and or specialist in the next 24-48 hours, and to return to the ED if they have worsening of their symptoms. Please note that this report is being documented using [employer] technology. This can lead to erroneous entry secondary to incorrect interpretation by the dictating instrument. Larry Trinidad MD Jul 09, 2019 20:49
[2019-07-09] MEDS ORDERED: Dexamethasone 4mg/ml vial ORAL ONE (21:00)
[2019-07-09 21:15] VITALS: BP 126/90
== END 2019-07-09 21:15 | disposition home or self-care (01) ==
LOC: EMR 21:08
DX: M25.561 Pain in right knee (principal); E11.9 Type 2 diabetes mellitus without complications; M19.90 Unspecified osteoarthritis, unspecified site
CPT/HCPCS: 99282; J1100

== ENCOUNTER 2019-09-19 08:34 | Emergency (ER) | payer MEDICAID ==
[~2019-09-19] VITALS: Ht 162.6 cm; Wt 133.8 kg
[~2019-09-19 08:34] MED LIST changes: +NAPROXEN250 MG ORAL; +ROBAXIN-750750 MG PO
[2019-09-19] MEDS ORDERED: CHLORTHALIDONE25 MG ORAL (08:58)
[2019-09-19] MEDS ORDERED: ATORVASTATIN CA20 MG ORAL (08:58)
--- NOTE | 2019-09-19 09:02 | NUR ---
ED Nurse Note: Late entry. PT walked into ER with R-leg pain, VS stable, no S/S of respiratory distress on RA, A/O x 4, will continue to monitor PT.
[2019-09-19 09:10] VITALS: BP 165/73
[2019-09-19] MEDS ORDERED: ACETAMINOPHEN500 M5 ORAL (09:17)
[2019-09-19] MEDS ORDERED: VERAPAMIL ER240 M2 PO (09:17)
--- NOTE | 2019-09-19 09:54 | NUR ---
ED Nurse Note: Terrance wrap applied per MD order. PT A/O x 4, no S/S of respiratory distress on RA. PT in room with mother. Will continue to monitor.
[2019-09-19] MEDS ORDERED: NAPROXEN500 M2 ORAL (10:01)
[2019-09-19 10:10] VITALS: BP 153/80
--- NOTE | 2019-09-19 10:10 | NUR ---
ER DISCHARGE NOTE: Patient is cleared to be discharged per ERMD, pt is aox4, on room air, with stable vital signs. pt was given dc and prescription instructions, pt was able to verbalize understanding, pt id band and iv site removed without complications. pt is able to ambulate with steady gait. pt took all belongings.
--- NOTE | 2019-09-19 11:02 | Emergency Room Report ---
History of Present Illness General Chief Complaint: Pain Source: Medical Record Present Illness HPI 54-year-old female presents ED for evaluation. Complaining of right knee pain. States she has had this pain on and off for the last several months. Pain is dull, 8 out of 10, radiating through the hip. Worse with walking. States she has been here previously for similar pain. Was told that she has arthritis. Is currently waiting for referral to orthopedics. Is able to pain walk with difficulty. No other aggravating relieving factors. Denies any other associated symptoms Allergies: Uncoded Allergies: DUST,POLLEN (Allergy, Unknown, 03/12/19) Patient History Past Medical History: none, HTN, asthma, other - arthritis Past Surgical History: none Pertinent Family History: none Social History: Denies: smoking, alcohol use, drug use Last Menstrual Period: 2017 Now: No Immunizations: UTD Reviewed Nursing Documentation: PMH: Agreed; PSxH: Agreed Nursing Documentation-PMH Past Medical History: No History, Except For Hx Hypertension: Yes Hx Asthma: Yes - Bronchitis Hx Diabetes: Yes Hx Neurological Problems: Yes - ARTHIRITS Review of Systems All Other Systems: negative except mentioned in HPI Physical Exam Vital Signs Date Time Temp Pulse Resp B/P (MAP) Pulse Ox O2 Delivery O2 Flow Rate FiO2 09/19/19 08:45 97.7 75 16 165/73 (103) 99 Room Air Sp02 EP Interpretation: reviewed, normal General Appearance: no apparent distress, alert, GCS 15, non-toxic, obese Head: normocephalic ENT: normal ENT inspection Neck: normal inspection Respiratory: normal inspection Cardiovascular #1: normal inspection Gastrointestinal: normal inspection Rectal: deferred Genitourinary: no CVA tenderness Musculoskeletal: normal inspection, tender - R knee Neurologic: alert, oriented x3, responsive, motor strength/tone normal, sensory intact, speech normal Psychiatric: normal inspection Skin: no rash Lymphatic: normal inspection Medical Decision Making Diagnostic Impression: Primary Impression: Arthritis of knee ER Course Hospital Course 54 yo F presents to ED c/o R knee pain Differential diagnoses include: Fracture, dislocation, sprain, contusion Clinical course Patient placed on stretcher. After initial history and physical, I ordered xrays of R knee Xrays prelim read shows no acute fracture/dislocation. signficiant DJD unchanged from prior x-rays. discussed findings with the patient. Placed in Terrance wrap. I recommend orthopedic outpatient follow-up. She has been told multiple times in the past to follow-up with orthopedics but states she is waiting for approval from her insurance. I will provide her with referrals. Safe for discharge for close outpatient follow-up. Diagnosis - arthritis of knee Stable and discharged to home with prescription for naprosyn. apply ice, keep elevated. weight bear as tolerated. Followup with PMD/ortho. Return to ED if symptoms recur or worsen Other X-Ray Diagnostic Results Other X-Ray Diagnostic Results : X-Ray ordered: R knee # of Views/Limited Vs Complete: 3 View Indication: Pain EP Interpretation: Yes Interpretation: no dislocation, no soft tissue swelling, no fractures Impression: Other - DJD Electronically Signed by: Electronically signed by Antony Euceda MD Last Vital Signs Date Time Temp Pulse Resp B/P (MAP) Pulse Ox O2 Delivery O2 Flow Rate FiO2 09/19/19 10:10 98.5 16 153/80 99 Room Air 09/19/19 08:45 75 Status: improved Disposition: HOME, SELF-CARE Condition: Stable Scripts Naproxen* (NAPROXEN*) 500 Mg Tablet 500 MG ORAL TWICE A DAY, #30 TAB Prov: Antony Euceda MD 09/19/19 Referrals: NON PHYSICIAN (PCP) [facility] Open 24 hour /7 days a week by Appointment Only [address] [facility] [id number] Patient Instructions: Arthritis, [id number] Antony Euceda MD Sep 19, 2019 11:02
--- NOTE | 2019-09-19 11:48 | Diagnostic Imaging Report ---
Indication: Right knee pain Technique: 3 views of the right knee Comparison: 07/27/2008 Findings: There is narrowing of the lateral joint compartment. There are progressive degenerative proliferative changes, particularly medially. No definite suprapatellar effusion. No acute fractures. No dislocations. Impression: Degenerative changes No acute bony trauma
== END 2019-09-19 10:10 | disposition home or self-care (01) ==
LOC: EMR 09:15
DX: M13.861 Other specified arthritis, right knee (principal); I10 Essential (primary) hypertension; J45.909 Unspecified asthma, uncomplicated; E11.9 Type 2 diabetes mellitus without complications; Z91.048 Other nonmedicinal substance allergy status
CPT/HCPCS: 73562; Z7502; 99283

== ENCOUNTER 2020-01-08 10:25 | Emergency (ER) | payer MEDICAID ==
[~2020-01-08] VITALS: Ht 162.6 cm; Wt 131.5 kg
[~2020-01-08 10:25] MED LIST changes: +ACETAMINOPHEN500 M5 ORAL; +ATORVASTATIN CA20 MG ORAL; +CHLORTHALIDONE25 MG ORAL; +NAPROXEN500 M2 ORAL; +VERAPAMIL ER240 M2 PO
[2020-01-08 10:33] VITALS: BP 127/62
--- NOTE | 2020-01-08 10:54 | Emergency Room Report ---
History of Present Illness General Chief Complaint: Upper Respiratory Illness Source: Patient Present Illness HPI Patient is a 54-year-old female presents after increased nasal congestion as well as cough. Reports having associated diarrhea. Denies any fever. Increased nasal congestion. Denies any change in leg pain or swelling. Prior history of diabetes. Had not been vomiting. She reports having multiple episodes of Nonproductive cough Allergies: Uncoded Allergies: DUST,POLLEN (Allergy, Unknown, 03/12/19) Patient History Past Medical History: see triage record Last Menstrual Period: MENOPAUSAL Now: No Reviewed Nursing Documentation: PMH: Agreed; PSxH: Agreed Nursing Documentation-PMH Past Medical History: No History, Except For Hx Hypertension: Yes Hx Asthma: Yes - Bronchitis Hx Diabetes: Yes Hx Neurological Problems: Yes - ARTHIRITS Review of Systems All Other Systems: negative except mentioned in HPI Physical Exam Vital Signs Date Time Temp Pulse Resp B/P (MAP) Pulse Ox O2 Delivery O2 Flow Rate FiO2 01/08/20 10:33 97.3 77 16 127/62 (83) 94 Room Air General Appearance: well appearing, no apparent distress, alert, GCS 15, obese Head: normocephalic, atraumatic ENT: hearing grossly normal, normal voice Neck: full range of motion, supple Respiratory: chest non-tender, lungs clear, normal breath sounds, no respiratory distress, speaking full sentences Cardiovascular #1: normal inspection, edema - trace edema Gastrointestinal: normal inspection, non tender, soft Musculoskeletal: no calf tenderness Neurologic: alert, motor strength/tone normal, material liaison III-XII nml as tested, normal gait Psychiatric: normal inspection, mood/affect normal Skin: no rash Medical Decision Making Diagnostic Impression: Primary Impression: Upper respiratory infection, viral ER Course Patient presented for cough. Differential diagnosis include was not limited to viral respiratory infection, pneumonia, allergic reaction, among others. Patient has a benign exam and does not appear to require any imaging at this time. Patient appears to have some evidence of upper respiratory infection. Patient appears to be stable for outpatient management. She will be given prescription for medication for symptomatic treatment of cough. Chest x-ray 1 view read by radiology showed slight cardiomegaly with no infiltrates. Was advised to follow-up with primary care physician for recheck. The patient is advised to follow up with primary care doctor in 1-2 days. Patient is advised to return if any worsening condition or if any changes in status that are concerning. This report is dictated with [employer] combatant diver qualified software which may occasionally lead to discrepancies related to use of this software. Last Vital Signs Date Time Temp Pulse Resp B/P (MAP) Pulse Ox O2 Delivery O2 Flow Rate FiO2 01/08/20 10:33 97.3 77 16 127/62 (83) 94 Room Air Status: improved Disposition: HOME, SELF-CARE Condition: Stable Scripts Benzonatate* (TESSALON PERLE*) 100 Mg Capsule 100 MG ORAL THREE TIMES A DAY for cough, #30 PERLE Prov: Gerardo Barboza MD 01/08/20 Guaifenesin/Dextromethorphan* (Guaifenesin Dm Syrup*) 5 Ml Syrup 5 ML ORAL Q8H PRN for FOR COUGH, #118 ML 0 Refills Prov: Gerardo Barboza MD 01/08/20 Referrals: [facility],REF (PCP) Gerardo Barboza MD Jan 08, 2020 10:54
--- NOTE | 2020-01-08 11:00 | NUR ---
ED Nurse Note: Patient presents to ER due to flu-like symptoms (cough/nasal congestion) for the past few days; Reports no fever, chills. Tolerating oral intake without N/V. Mask provided. Regular, unlabred breathing noted. Patient laying in bed, semi-carlisle position without facial grimacing or guarding.
[2020-01-08] MEDS ORDERED: GUAIFENESIN DM118 M1 ORAL ×2 (11:19)
[2020-01-08] MEDS ORDERED: TESSALON PERLE100 MG ORAL ×2 (11:19)
--- NOTE | 2020-01-08 11:37 | NUR ---
ED Nurse Note: Patient is being discharged from medical care. D/C instruction and prescription given to patient. Patient verbalized understanding of it. All questions were answered. Patient ambulated out with steady gait.
--- NOTE | 2020-01-08 11:54 | Diagnostic Imaging Report ---
EXAM: XR Chest, 1 View CLINICAL HISTORY: COUGH TECHNIQUE: Frontal view of the chest. COMPARISON: Chest x-ray 01/20/19 FINDINGS: Lungs: Vascular and interstitial prominence. No consolidation. Pleural space: Unremarkable. No pneumothorax. Heart: Mild cardiomegaly. Mediastinum: Unremarkable. Bones/joints: Unremarkable. IMPRESSION: 1. Vascular and interstitial prominence. 2. Mild cardiomegaly.
== END 2020-01-08 11:37 | disposition home or self-care (01) ==
LOC: EMR 10:46
DX: J06.9 Acute upper respiratory infection, unspecified (principal); E11.9 Type 2 diabetes mellitus without complications; I10 Essential (primary) hypertension; M19.90 Unspecified osteoarthritis, unspecified site; E66.9 Obesity, unspecified; Z68.42 Body mass index [BMI] 45.0-49.9, adult
CPT/HCPCS: 71045; Z7502; 99283

== ENCOUNTER 2020-01-16 15:34 | Emergency (ER) | payer MEDICAID ==
[~2020-01-16] VITALS: Ht 162.6 cm; Wt 131.5 kg
[~2020-01-16 15:34] MED LIST changes: +GUAIFENESIN DM118 M1 ORAL; +TESSALON PERLE100 MG ORAL
--- NOTE | 2020-01-16 16:18 | NUR ---
ED Nurse Note: pt states thursday she noticed white pus like lesion on her left lower buttock area. pt states painful on a scale of 5/10.
[2020-01-16 16:19] VITALS: BP 157/96
--- NOTE | 2020-01-16 16:51 | Emergency Room Report ---
History of Present Illness General Chief Complaint: Skin Rash/Abscess Source: Patient Present Illness HPI 54-year-old female presents to the emergency department complaining of 8 out of 10 severity painful pt. presents to the ED c/o rash with erythema and pustules x3 days. Patient denies fevers or chills. Patient reports she had the chickenpox twice when she was younger. Patient reports initial burning sensation but now is primarily tender when she is sitting. She reports that it is on that her right buttock. She has been applying rubbing alcohol at home with no relief of her symptoms. Pt. denies fevers, chills or swollen tender lymph nodes. Denies lesions/rashes elsewhere on the body. Denies new medications or body washes or creams. Denies swelling of the lips, tongue , throat or airway. Denies wheezing, or shortness of breath. Denies recent travel , recent illness or ill contacts. denies oral lesions, or sloughing of the skin Allergies: Uncoded Allergies: DUST,POLLEN (Allergy, Unknown, 03/12/19) Patient History Past Medical History: see triage record, DM Past Surgical History: none Pertinent Family History: none Now: No Immunizations: UTD Reviewed Nursing Documentation: PMH: Agreed; PSxH: Agreed Nursing Documentation-PMH Hx Hypertension: Yes Hx Asthma: Yes - Bronchitis Hx Diabetes: Yes Hx Neurological Problems: Yes - ARTHIRITS Review of Systems All Other Systems: negative except mentioned in HPI Physical Exam Vital Signs Date Time Temp Pulse Resp B/P (MAP) Pulse Ox O2 Delivery O2 Flow Rate FiO2 01/16/20 16:12 98.2 69 20 157/96 (116) 96 Room Air Sp02 EP Interpretation: reviewed, normal General Appearance: no apparent distress, alert, GCS 15, non-toxic Head: normocephalic, atraumatic Eyes: bilateral eye normal inspection, bilateral eye PERRL ENT: hearing grossly normal, no angioedema, normal voice Neck: full range of motion Respiratory: lungs clear, normal breath sounds, no wheezing, speaking full sentences Cardiovascular #1: regular rate, rhythm Musculoskeletal: normal range of motion, gait/station normal, non-tender Neurologic: alert, motor strength/tone normal, oriented x3, sensory intact, responsive, speech normal Psychiatric: judgement/insight normal Skin: rash - Grouped pustules with surrounding erythema, induration and warmth to localized area of the right buttock. No obvious vesicles, blisters and no sloughing of the skin. No crusting noted. Lymphatic: no adenopathy Medical Decision Making PA Attestation Dr. Jalloh is my supervising Physician whom patient management has been discussed with. Diagnostic Impression: Primary Impression: Cellulitis of buttock ER Course 54-year-old female presents to the emergency department complaining of 8 out of 10 severity painful pt. presents to the ED c/o rash with erythema and pustules x3 days. Patient denies fevers or chills. Patient reports she had the chickenpox twice when she was younger. Patient reports initial burning sensation but now is primarily tender when she is sitting. She reports that it is on that her right buttock. She has been applying rubbing alcohol at home with no relief of her symptoms. Pt. denies fevers, chills or swollen tender lymph nodes. Denies lesions/rashes elsewhere on the body. Denies new medications or body washes or creams. Denies swelling of the lips, tongue , throat or airway. Denies wheezing, or shortness of breath. Denies recent travel , recent illness or ill contacts. denies oral lesions, or sloughing of the skin Ddx considered but are not limited to cellulitis, scabies, shingles, varicella, dermatitis, urticaria, eczema, tinea, viral exanthem, SJS Vital signs: are WNL, pt. is afebrile H&PE are most consistent with Staph cellulitis of the right buttock. Pustules are noted and they are not notably sensitive to palpation which would be seen if this were shingles related. ORDERS: none required at this time, the diagnosis is clinical ED INTERVENTIONS: -Acyclovir PO x1 given due to initial suspicion of shingles. DISCHARGE: At this time pt. is stable for d/c to home. Will provide printed patient care instructions, and any necessary prescriptions. Care plan and follow up instructions have been discussed with the patient prior to discharge. Last Vital Signs Date Time Temp Pulse Resp B/P (MAP) Pulse Ox O2 Delivery O2 Flow Rate FiO2 01/16/20 16:19 98.2 79 20 157/96 96 Room Air Disposition: HOME, SELF-CARE Condition: Stable Patient Instructions: Cellulitis, [id number], Staphylococcal Infection Additional Instructions: Take medications as directed. Follow up with a Primary Care Provider in 3-5 days for DERMATOLOGY REFERRAL , even if your symptoms have resolved. Return sooner to ED if new symptoms occur, or current symptoms become worse. - Please note that this Emergency Department Report was dictated using [employer] dispatcher service technology software, occasionally this can lead to erroneous entry secondary to interpretation by the dictation equipment. Elizabeth Peterson Jan 16, 2020 16:51
[2020-01-16] MEDS ORDERED: CEPHALEXIN500 MG ORAL (16:53)
[2020-01-16] MEDS ORDERED: MUPIROCIN22 GM TOPIC (16:53)
[2020-01-16] MEDS ORDERED: BACTRIM DS TAB1 EAC1 ORAL (16:53)
[2020-01-16 16:57] VITALS: BP 145/91
--- NOTE | 2020-01-16 16:58 | NUR ---
ER DISCHARGE NOTE: Patient is cleared to be discharged per ERMD, pt is aox4, on room air, with stable vital signs. pt was given dc and prescription instructions, pt was able to verbalize understanding, pt id band removed. pt is able to ambulate with steady gait. pt took all belongings.
== END 2020-01-16 16:58 | disposition home or self-care (01) ==
LOC: EMR 16:55
DX: L03.317 Cellulitis of buttock (principal); I10 Essential (primary) hypertension; E11.9 Type 2 diabetes mellitus without complications; M19.90 Unspecified osteoarthritis, unspecified site
CPT/HCPCS: 99282

== ENCOUNTER 2020-04-03 15:46 | Emergency (ER) | payer MEDICAID ==
[~2020-04-03] VITALS: Ht 165.1 cm; Wt 133.8 kg
[~2020-04-03 15:46] MED LIST changes: +BACTRIM DS TAB1 EAC1 ORAL; +CEPHALEXIN500 MG ORAL; +MUPIROCIN22 GM TOPIC
[2020-04-03] MEDS ORDERED: Ketorolac 30mg Inj IV ONE (16:00)
[2020-04-03] MEDS ORDERED: ACETAMINOPHEN500 M3 ORAL (16:06)
[2020-04-03] MEDS ORDERED: NAPROXEN SODIU220 M2 PO (16:06)
[2020-04-03] MEDS ORDERED: VENTOLIN HFA18 GM INH (16:06)
[2020-04-03 16:20] VITALS: BP 124/68
[2020-04-03 16:44] LABS: BASOPHILS % (AUTO) 1.3 % (0.0-2.0); EOSINOPHILS % (AUTO) 1.8 % (0.0-3.0); HEMATOCRIT 39.8 % (37.0-47.0); HEMOGLOBIN 11.9 G/DL (12.0-16.0); LYMPHOCYTES % (AUTO) 37.1 % (20.0-45.0); MEAN CORPUSCULAR VOLUME 88 FL (80-99); MONOCYTES % (AUTO) 7.3 % (1.0-10.0); NEUTROPHILS % (AUTO) 52.5 % (45.0-75.0); PLATELET COUNT 352 K/UL (150-450); RED BLOOD COUNT 4.54 M/UL (4.20-5.40); RED CELL DISTRIBUTION WIDTH 14.5 % (11.6-14.8); WHITE BLOOD COUNT 8.6 K/UL (4.8-10.8)
--- NOTE | 2020-04-03 16:59 | Diagnostic Imaging Report ---
Indication: Shortness of breath, chest pain Technique: One view of the chest Comparison: 01/08/2020 Findings: Body habitus limits evaluation. There is questionable bilateral diffuse hazy parenchymal opacity, although this could be an artifact of overlying soft tissue and appears similar to the previous exam.. No dense consolidation or congestion demonstrated. The heart is borderline enlarged. Impression: Equivocal bilateral hazy infiltrates, versus artifact, could indicate early pneumonia or mild congestion if real Mild cardiomegaly
[2020-04-03 17:00] LABS: APPEARANCE,URINE SLIGHTLY CLOUDY; BILIRUBIN, URINE NEGATIVE (NEGATIVE); COLOR,URINE PALE YELLOW; GLUCOSE, URINE (UA) NEGATIVE (NEGATIVE); KETONES,URINE NEGATIVE (NEGATIVE); LEUKOCYTE ESTERASE ,URINE 1+ (NEGATIVE); NITRITE,URINE NEGATIVE (NEGATIVE); PH,URINE 5 (4.5-8.0); PROTEIN,URINE NEGATIVE (NEGATIVE); UROBILINOGEN,URINE NORMAL MG/DL (0.0-1.0)
[2020-04-03 17:03] LABS: ANION GAP 10 mmol/L (5-15); BLOOD UREA NITROGEN 8 mg/dL (7-18); CALCIUM 9.2 MG/DL (8.5-10.1); CARBON DIOXIDE 30 MMOL/L (21-32); CHLORIDE 106 MMOL/L (98-107); CREATININE 0.8 MG/DL (0.55-1.30); POTASSIUM 3.8 MMOL/L (3.5-5.1); SODIUM 146 MMOL/L (136-145)
[2020-04-03 17:08] LABS: ALANINE AMINOTRANSFERASE 24 U/L (12-78); ALBUMIN 3.6 G/DL (3.4-5.0); ALBUMIN/GLOBULIN RATIO 0.9 (1.0-2.7); ALKALINE PHOSPHATASE 76 U/L (46-116); ASPARTATE AMINO TRANSFERASE 14 U/L (15-37); BILIRUBIN,TOTAL 0.5 MG/DL (0.2-1.0)
--- NOTE | 2020-04-03 17:36 | Diagnostic Imaging Report ---
EXAM: CT Head Without Intravenous Contrast CLINICAL HISTORY: PAIN TECHNIQUE: Axial computed tomography images of the head/brain without intravenous contrast. CTDI is 53.4 mGy and DLP is 1012.5 mGy-cm. One or more of the following dose reduction techniques were used: automated exposure control, adjustment of the mA and/or kV according to patient size, use of iterative reconstruction technique. COMPARISON: None FINDINGS: Brain: No acute infarct or hemorrhage. No extra-axial fluid collection. No mass effect or midline shift. Ventricles and sulci: Normal. No ventriculomegaly or intraventricular hemorrhage. Bones: Hyperostosis frontalis interna. No bony lesion or fracture. Subcutaneous tissues: Normal. Sinuses: Normal. No air-fluid levels or mucosal thickening. Mastoid air cells: Normal. Orbits: Grossly unremarkable. Other: Atherosclerotic calcifications of the intracranial vasculature. IMPRESSION: No acute intracranial abnormality.
--- NOTE | 2020-04-03 17:49 | Emergency Room Report ---
History of Present Illness General Chief Complaint: Headache Source: Patient Present Illness HPI 54-year-old female with history of type 2 diabetes currently insulin-dependent, hypertension and cardiomegaly and morbid obesity here complaining of 1 month of headache. Denies any head trauma. Reports that the headache starts in the right side and spreads in bandlike position to the left side of the frontal head. Rates the pain 10 out of 10 without radiation to posterior head or neck. Complains of some blurry vision at times however denies tingling and numbness. Denies nausea vomiting, dizziness and vertigo. Reports that she has always been short of breath intermittently upon walking. Denies any recent pedal edema. Denies any pleuritic chest pain, acute onset of abdominal pain, nausea vomiting diarrhea. Denies any fever and chills, cough or congestion at this time. Denies any chest pain. Denies any unilateral weakness. Patient is neurovascularly intact Allergies: Uncoded Allergies: DUST,POLLEN (Allergy, Unknown, 03/12/19) COVID-19 Screening Contact w/high risk pt: No Recent Travel to affected area: No Experienced COVID-19 symptoms?: No Patient History Past Medical History: see triage record Past Surgical History: none Pertinent Family History: none Now: No Immunizations: UTD Reviewed Nursing Documentation: PMH: Agreed; PSxH: Agreed Nursing Documentation-PMH Past Medical History: No History, Except For Hx Hypertension: Yes Hx Asthma: Yes - Bronchitis Hx Diabetes: Yes Hx Neurological Problems: Yes - ARTHIRITS Review of Systems All Other Systems: negative except mentioned in HPI Physical Exam Vital Signs Date Time Temp Pulse Resp B/P (MAP) Pulse Ox O2 Delivery O2 Flow Rate FiO2 04/03/20 15:51 98.1 71 18 124/68 (86) 98 Room Air Sp02 EP Interpretation: reviewed, normal General Appearance: no apparent distress, alert, GCS 15, non-toxic Head: normocephalic, atraumatic Eyes: bilateral eye normal inspection, bilateral eye PERRL ENT: hearing grossly normal, normal pharynx, no angioedema, normal voice Neck: normal inspection, full range of motion, supple, thyroid normal, no meningismus Respiratory: chest non-tender, lungs clear, normal breath sounds, no rhonchi, no respiratory distress, no retraction, no wheezing, speaking full sentences Cardiovascular #1: regular rate, rhythm, no edema, no murmur Cardiovascular #2: 2+ carotid (R), 2+ carotid (L), 2+ radial (R), 2+ radial (L) , 2+ dorsalis pedis (R), 2+ dorsalis pedis (L) Gastrointestinal: normal bowel sounds, non tender, soft, non-distended, no guarding, no rebound Rectal: deferred Genitourinary: no CVA tenderness Musculoskeletal: back normal, normal range of motion, no calf tenderness, gait/ station normal, non-tender Neurologic: alert, motor strength/tone normal, oriented x3, sensory intact, responsive, speech normal Psychiatric: judgement/insight normal, memory normal, mood/affect normal, no suicidal/homicidal ideation Skin: no rash Lymphatic: no adenopathy Medical Decision Making PA Attestation All my diagnosis and treatment plans were reviewed ad discussed with my supervising physician Dr. Barboza Diagnostic Impression: Primary Impression: Tension headache Additional Impressions: Infiltrate noted on imaging study Cardiomegaly ER Course 54-year-old female with history of type 2 diabetes currently insulin-dependent, hypertension and cardiomegaly and morbid obesity here complaining of 1 month of headache. Denies any head trauma. Reports that the headache starts in the right side and spreads in bandlike position to the left side of the frontal head. Rates the pain 10 out of 10 without radiation to posterior head or neck. Complains of some blurry vision at times however denies tingling and numbness. Denies nausea vomiting, dizziness and vertigo. Reports that she has always been short of breath intermittently upon walking. Denies any recent pedal edema. Denies any pleuritic chest pain, acute onset of abdominal pain, nausea vomiting diarrhea. Denies any fever and chills, cough or congestion at this time. Denies any chest pain. Denies any unilateral weakness. Patient is neurovascularly intact Ddx considered but are not limited to: Migraine headache with aura, migraine headache without aura, tension headache, cluster headache, TBI, subarachnoid hemorrhage, hypertension urgency, hypertensive emergency Vital signs: are WNL, pt. is afebrile H&PE are most consistent with: Tension headache, infiltrates noted on the imaging study, cardiomegaly ORDERS: CBC, CMP, troponin, UA, tox 3, serum alcohol level, BMP, chest x-ray, EKG, head CT no contrast, Excedrin, ibuprofen, azithromycin ER intervention: NS bolus, Toradol DISCHARGE: At this time pt. is stable for d/c to home. Will provide printed patient care instructions, and any necessary prescriptions. Care plan and follow up instructions have been discussed with the patient prior to discharge. Advised patient to discontinue taking naproxen as it does not help her headache, also do not mix naproxen with ibuprofen, follow-up with primary doctor for MRI of brain for further evaluation at this time no more imaging or blood work needed acutely as patient has been having symptoms for over a month. Also follow-up with pantry cook. If worsening symptoms return to the emergency room EKG Diagnostic Results Rate: normal ST Segments: no acute changes Other Impression No acute ST changes Chest X-Ray Diagnostic Results Chest X-Ray Diagnostic Results : Chest X-Ray Ordered: Yes # of Views/Limited/Complete: 1 View Indication: Other EP Interpretation: Yes PA Xray: Interpretation reviewed, by supervising MD, and agrees with findings. Interpretation: no consolidation, no effusion, no pneumothorax Impression: No acute disease Electronically Signed by: Walt Aguirre PA-C CT/MRI/US Diagnostic Results CT/MRI/US Diagnostic Results : Imaging Test Ordered: Head CT no contrast Impression FINDINGS: Brain: No acute infarct or hemorrhage. No extra-axial fluid collection. No mass effect or midline shift. Ventricles and sulci: Normal. No ventriculomegaly or intraventricular hemorrhage. Bones: Hyperostosis frontalis interna. No bony lesion or fracture. Subcutaneous tissues: Normal. Sinuses: Normal. No air-fluid levels or mucosal thickening. Mastoid air cells: Normal. Orbits: Grossly unremarkable. Other: Atherosclerotic calcifications of the intracranial vasculature. IMPRESSION: No acute intracranial abnormality. Last Vital Signs Date Time Temp Pulse Resp B/P (MAP) Pulse Ox O2 Delivery O2 Flow Rate FiO2 04/03/20 16:20 98.1 76 18 124/68 98 Room Air Disposition: HOME, SELF-CARE Condition: Stable Scripts Azithromycin* (ZITHROMAX*) 250 Mg Tablet 250 MG ORAL DAILY, #6 TAB 0 Refills Take two tables once daily for 1 day, then one tablet once daily for 4 days. Prov: Walt Ryan 04/03/20 Ibuprofen* (MOTRIN*) 600 Mg Tablet 600 MG ORAL THREE TIMES A DAY, #30 TAB Prov: Walt Ryan 04/03/20 Aspirin/Acetaminophen/Caffeine (EXCEDRIN EXTRA STRENGTH CAPLET) 1 Each Tablet 1 EACH PO BID, #20 TAB Prov: Walt Ryan 04/03/20 Referrals: NON PHYSICIAN (PCP) Patient Instructions: Tension Headache, Upper Respiratory Infection, Adult Additional Instructions: Take medication as directed, follow-up with your pantry cook and your primary doctor, if worsening symptoms return to the emergency room Walt Ryan April 03, 2020 17:49
[2020-04-03] MEDS ORDERED: IBUPROFEN600 M1 ORAL (17:51)
[2020-04-03] MEDS ORDERED: ZITHROMAX250 MG ORAL (17:51)
[2020-04-03] MEDS ORDERED: EXCEDRIN EXTRA1 EAC1 PO (17:51)
[2020-04-03 18:05] VITALS: BP 124/68
== END 2020-04-03 18:05 | disposition home or self-care (01) ==
LOC: EMR 16:00
DX: G44.209 Tension-type headache, unspecified, not intractable (principal); I10 Essential (primary) hypertension; E11.9 Type 2 diabetes mellitus without complications; M19.90 Unspecified osteoarthritis, unspecified site; Z79.4 Long term (current) use of insulin; I51.7 Cardiomegaly
CPT/HCPCS: 36415; 70450; 71045; 80053; 80307; 81003; 83880; 84484; 85025; 93005; 96361; 96374; G0480; J1885; J7030; Z7502; 99284

== ENCOUNTER 2020-08-22 02:25 | Emergency (ER) | payer MEDICAID ==
[~2020-08-22] VITALS: Ht 162.6 cm; Wt 133.8 kg
[~2020-08-22 02:25] MED LIST changes: +ACETAMINOPHEN500 M3 ORAL; +EXCEDRIN EXTRA1 EAC1 PO; +IBUPROFEN600 M1 ORAL; +NAPROXEN SODIU220 M2 PO; +VENTOLIN HFA18 GM INH; +ZITHROMAX250 MG ORAL
--- NOTE | 2020-08-22 02:42 | NUR ---
ED Nurse Note: Patient walked into the ED with c/o SOB and wheezing since thursday. Patient has hx of asthma and has inhaler but states it was not effective. Triage o2 sat at 90%. PAtient denies chest pain, fever and chills, n&v. Patient is AAOX4 and ambulatory. Placed on monitor bed
--- NOTE | 2020-08-22 02:45 | NUR ---
ED Nurse Note: ERMD at bedside
--- NOTE | 2020-08-22 02:59 | Emergency Room Report ---
History of Present Illness General Chief Complaint: Dyspnea/Respdistress Source: Patient Present Illness HPI 55-year-old obese -[place] female with past medical history of hypertension, diabetes, dyslipidemia, possible CHF, bronchitis presents to the emergency department with history of shortness of breath x4 days. Patient states she took her albuterol inhaler at home but it did not work. She has otherwise been compliant with her medications. Denies chest pain, diaphoresis, fatigue, nausea, vomiting, fever, cough, wheezing, or other symptoms. Denies recent travel, hospitalization, or antibiotic use. Has never been intubated before.. She states she might have had sick contacts at work. The patient's symptoms were gradual onset, severity was moderate, duration since 4 days. Last menstrual period was in 2018 Quality: Short of breath Past medical history: Hypertension, diabetes, dyslipidemia, CHF, bronchitis Past surgical history: Denies Smoking: Denies Alcohol use: Denies Drug use: Denies Review of systems: CONST: No fevers or chills, No night sweats PULMONARY: No productive cough, No shortness of breath CARDIAC: No chest pain, No palpitations GI: No vomiting, No diarrhea , No melena_or_BRBPR : No dysuria, No hematuria, No discharge NEURO: No new_focal_weakness_or_numbness, No confusion, No vision changes 14 point Review of Systems is otherwise negative except per HPI Physical Exam: GENERAL: Awake_alert_ nontoxic, no acute distress Spo2 90% on RA -normal Obese EYES: Extraocular muscles are intact. Conjunctivae clear. Lids without swelling ENT: External nose and ear normal_in_appearance. Oropharynx clear. Head_atraumatic, Moist_oral_mucosa NECK: No JVD. No meningismus. No thyromegaly. Supple. Trachea midline RESP: Normal respiratory effort. Symmetric rise. No stridor. Clear_to_auscultation_No_rales_No_wheezes Speaks in full and complete sentences. No subcostal retractions. CARDIAC: Regular rate and regular rhytm. No_significant pedal edema. ABDOMEN: Soft. Nondistended. Nontender_No_rebound_or_guarding. MSK: Normal muscle tone, without rigidity. Extremities without asymmetric deformity or swelling. SKIN: Warm and dry. No visible cyanosis or pallor. Fungal rash to L chest. Non dermatomal. No cellulitis or crepitus NEUROLOGIC: Alert, oriented x3. Motor_and_sensation_grossly_intact. No truncal ataxia. Gait_normal Psych: Normal mood and affect, normal judgment and insight - COORDINATION OF CARE Case was discussed with: Patient Any labs and imaging that were ordered were interpreted as part of the medical decision making: I did review previous chest x-ray from March 2020 that showed cardiomegaly and vascular congestion. As far as patient aware, she does not hold a formal diagnosis of congestive heart failure. Medical Decision Making/Plan: Differential includes CHF, pulmonary edema, pulmonary embolism, pneumonia, pleural effusions, pneumothorax, among others. Pt is well appearing. Initial spo2 in triage was 90% however improved upon being placed in a main ED bed. Spo2 in bed is 100% EKG is normal sinus rhythm I did review previous without any obvious signs of ischemia. CXR shows cardiomegaly with vascular congestion, similar to previously. No evidence of pneumonia. Troponin negative. BNP 119, CHF is unlikely. Doubt ACS. CTA negative for PE, R heart strain, or pleural effusion. No PNA. COVID negative. Patient received breathing treatment with improvement of symtoms. No ambulatory hypoxia. Acute coronary syndrome is unlikely and the patient is low risk, pain is atypical, nonexertional, and troponin is negative with over 6 hrs of symptoms. The pain is not classic for pericarditis or myocarditis, and the patient has no significant risk factors for a pericardial effusion and has stable vitals signs, unlikely to have tamponade. Patient observed for several hours in the ED, ECG with no emergent findings, patient discharged with no dangerous vital signs, patient instructed to follow up with PMD in the next 1-2 days to be referred Allergies: Uncoded Allergies: DUST,POLLEN (Allergy, Unknown, 03/12/19) COVID-19 Screening Contact w/high risk pt: No Recent Travel to affected area: No Experienced COVID-19 symptoms?: No COVID-19 Testing performed TEST RIDER: No Patient History Now: No Nursing Documentation-PMH Hx Hypertension: Yes Hx Asthma: Yes - Bronchitis Hx Diabetes: Yes Hx Neurological Problems: Yes - ARTHIRITS Physical Exam Vital Signs Date Time Temp Pulse Resp B/P (MAP) Pulse Ox O2 Delivery O2 Flow Rate FiO2 08/22/20 02:30 98.1 97 18 131/63 (85) 90 Room Air Sp02 EP Interpretation: reviewed, normal Medical Decision Making Diagnostic Impression: Primary Impression: Shortness of breath Additional Impressions: Diabetes Hypertension Dyslipidemia Obesity Bronchitis Dermatitis EKG Diagnostic Results PETTY Mitchell 12-lead EKG (interpreted by me) Time: 258 Indication: Rhythm analysis Tracing visualized and Interpreted by me. Rhythm: Normal sinus rhythm Rate: 74 bpm QTc: 455 Morphology: No_significant_ST_elevations_or_depressions, No STEMI Impression: Normal_sinus_rhythm_without_significant_abnormality Rhythm Strip Diag. Results Rhythm Strip Time: 02:59 EP Interpretation: yes Rate: 78 Rhythm: NSR, no PVC's, no ectopy Chest X-Ray Diagnostic Results Chest X-Ray Diagnostic Results : PETTY Mitchell Chest X-Ray: Views: 1 view(s) Indication: SOB Findings: CM, Mediastinum normal. mild vascular congestion Impression: CM, vascular congestion The X-ray(s) were independently viewed and interpreted contemporaneously Electronically signed by Melissa yi DO Reevaluation Time: 05:00 Last Vital Signs Date Time Temp Pulse Resp B/P (MAP) Pulse Ox O2 Delivery O2 Flow Rate FiO2 08/22/20 02:30 98.1 97 18 131/63 (85) 90 Room Air Status: improved Disposition: HOME, SELF-CARE Admit Decision Time: 05:00 Condition: Stable Scripts Hydrocortisone 1% Oint (Hydrocortisone 1% Oint*) Y Oint 28 GM TP TID for 7 Days, #60 GM Prov: Melissa Charles D.O. 08/22/20 Azithromycin* (ZITHROMAX*) 250 Mg Tablet 250 MG ORAL DAILY, #6 TAB 0 Refills Take two tables once daily for 1 day, then one tablet once daily for 4 days. Prov: Melissa Charles D.O. 08/22/20 Prednisone* (PREDNISONE*) 20 Mg Tablet 40 MG ORAL DAILY, #10 TAB Prov: Melissa Charles D.O. 08/22/20 Albuterol Sulfate (PROVENTIL HFA) 6.7 Gm Hfa.aer.ad 6.7 GM IH QID for 7 Days, INH 1 Refill Prov: Melissa Charles D.O. 08/22/20 Referrals: NON PHYSICIAN (PCP) Patient Instructions: Acute Bronchitis, [id number], Obesity, [id number] Additional Instructions: Instructions for patient/career center advisor: Follow up with your physician in 1-2 days. Follow-up with your doctor sooner if your condition requires a more timely clinical reevaluation. Return to the emergency department immediately if you feel that your condition is worsening or if you have any new or concerning symptoms. Review your discharge instructions and take any prescriptions given as instructed. [facility] PROVIDES FREE OR LOW-COST HEALTH SERVICES TO PEOPLE WHO CAN SHOW PROOF THAT THEY LIVE IN [facility]. TO FIND MORE CLINICS PARTNERED WITH [facility] TO PROVIDE SERVICE, PLEASE CALL . Melissa Charles D.O. Aug 22, 2020 02:59
[2020-08-22] MEDS ORDERED: Omnipaque 350 100ml vial INJ PRN (03:00)
--- NOTE | 2020-08-22 03:00 | NUR ---
ED Nurse Note: Rapid covid test sent
--- NOTE | 2020-08-22 03:15 | NUR ---
ED Nurse Note: Blood sent to lab for workup
[2020-08-22 03:22] LABS: BASOPHILS % (AUTO) 2.6 % (0.0-2.0); EOSINOPHILS % (AUTO) 1.6 % (0.0-3.0); HEMATOCRIT 34.5 % (37.0-47.0); HEMOGLOBIN 11.1 G/DL (12.0-16.0); LYMPHOCYTES % (AUTO) 29.5 % (20.0-45.0); MEAN CORPUSCULAR VOLUME 83 FL (80-99); MONOCYTES % (AUTO) 7.7 % (1.0-10.0); NEUTROPHILS % (AUTO) 58.7 % (45.0-75.0); PLATELET COUNT 306 K/UL (150-450); RED BLOOD COUNT 4.16 M/UL (4.20-5.40); RED CELL DISTRIBUTION WIDTH 13.5 % (11.6-14.8); WHITE BLOOD COUNT 9.7 K/UL (4.8-10.8)
[2020-08-22 03:26] VITALS: BP 131/63
[2020-08-22 03:35] LABS: ANION GAP 7 mmol/L (5-15); BLOOD UREA NITROGEN 14 mg/dL (7-18); CALCIUM 8.8 MG/DL (8.5-10.1); CARBON DIOXIDE 28 MMOL/L (21-32); CHLORIDE 106 MMOL/L (98-107); CREATININE 0.9 MG/DL (0.55-1.30); POTASSIUM 3.5 MMOL/L (3.5-5.1); SODIUM 141 MMOL/L (136-145)
[2020-08-22] MEDS: Albuterol/Ipratropium 3ml neb HHN SCH ×2 (05:12→05:13)
[2020-08-22] MEDS ORDERED: PROVENTIL HFA6.7 G1 IH (05:32)
[2020-08-22] MEDS ORDERED: PREDNISONE20 MG ORAL (05:32)
[2020-08-22] MEDS ORDERED: ZITHROMAX250 MG ORAL (05:32)
--- NOTE | 2020-08-22 05:38 | Diagnostic Imaging Report ---
EXAM: CT Angiography Chest With Intravenous Contrast CLINICAL HISTORY: SOB TECHNIQUE: Axial computed tomographic angiography images of the chest with intravenous contrast. CTDI is 16.90 mGy and DLP is 503.80 mGy-cm. One or more of the following dose reduction techniques were used: automated exposure control, adjustment of the mA and/or kV according to patient size, use of iterative reconstruction technique. MIP reconstructed images were created and reviewed. COMPARISON: 02/10/11. FINDINGS: Artifacts: Motion artifact and body habitus limit evaluation. Pulmonary arteries: No gross evidence for thrombus in the main pulmonary arteries. Aorta: Calcified atherosclerotic aorta. No thoracic aortic aneurysm. Great vessels of aortic arch: Aberrant right subclavian artery. Lungs: Mild atelectasis.. No mass. Pleural space: Unremarkable. No significant effusion. No pneumothorax. Heart: Small pericardial fluid versus mild pericardial thickening. No evidence of RV dysfunction. Mediastinum: Small hiatal hernia. Bones/joints: Degenerative changes in the spine No acute fracture. No dislocation. Soft tissues: Unremarkable. Lymph nodes: Unremarkable. No enlarged lymph nodes. IMPRESSION: 1. No gross evidence for pulmonary embolism, noting limitation. 2. No evidence for aortic dissection. 3. Mild bibasilar atelectasis
[2020-08-22] MEDS ORDERED: HYDROCORTISONE28 G2 TP (05:44)
[2020-08-22 06:08] VITALS: BP 121/78
--- NOTE | 2020-08-22 10:41 | Diagnostic Imaging Report ---
Procedure: XRAY Chest 1v Reason for study: Reason For Exam: SOB Comparison films: 04/03/2020. FINDINGS: A single one view chest is obtained. Vascularity is normal. The lung richard are clear bilaterally. Cardiac and mediastinal silhouette are within normal limits. CP angles are sharp. The bony thorax appear unremarkable. IMPRESSION: NO ACUTE CARDIOPULMONARY DISEASE.
--- NOTE | 2020-08-24 14:34 | Cardiology Report ---
APPROVED REPORT EKG Measurement Heart [id number] <Conclusion> Normal sinus rhythm Normal ECG
== END 2020-08-22 06:09 | disposition home or self-care (01) ==
LOC: EMR 02:49
DX: R06.02 Shortness of breath (principal); E11.9 Type 2 diabetes mellitus without complications; E78.5 Hyperlipidemia, unspecified; E66.9 Obesity, unspecified; J20.9 Acute bronchitis, unspecified; L30.9 Dermatitis, unspecified; I11.0 Hypertensive heart disease with heart failure; I50.9 Heart failure, unspecified; M19.90 Unspecified osteoarthritis, unspecified site; Z91.048 Other nonmedicinal substance allergy status; K44.9 Diaphragmatic hernia without obstruction or gangrene; I70.0 Atherosclerosis of aorta; J98.11 Atelectasis
CPT/HCPCS: 36415; 71045; 71275; 80048; 83880; 84484; 85025; 85610; 93005; 94640; J8540; Q9967; U0002; Z7502; 99284; J7620